=== PATIENT | female | born 2000 | race Caucasian/White ===

== ENCOUNTER 2020-03-16 16:35 | Emergency (ER) | payer MEDICAID, SELFPAY ==
[2020-03-16 16:59] VITALS: BP 112/57; PULSE 78; RESP 16; TEMP 36.8; O2SAT 100; BMI 22.3
--- NOTE | 2020-03-16 17:39 | ED.BACK ---
HPI - Back Pain/Injury General Chief Complaint: Back Pain/Injury Stated Complaint: BACK PAIN Time Seen by Provider: 03/16/20 17:39 History of Present Illness HPI Narrative: Patient complains of pain in the low back worse with movement which started yesterday without known injury, there is no change to bowel or bladder no burning with urination no numbness no weakness no radiation of pain no tingling no fever no chills Related Data Previous Rx's Medication Instructions Recorded cyclobenzaprine 5 mg PO TID PRN #14 tab 03/16/20 ibuprofen 600 mg PO Q6H PRN #20 tab 03/16/20 Allergies Allergy/AdvReac Type Severity Reaction Status Date / Time No Known Allergies Allergy Verified 03/16/20 17:03 [No Known Allergies*] Review of Systems Review of Systems: There is no headache no neck pain no chest pain no abdominal pain no numbness no weakness no paresthesias no radiation of pain no change to bowel or bladder no urine symptoms no burning or frequency Yes all other systems are reviewed and are negative PMFSH Past Medical History Source: nursing notes reviewed Medical History (Updated 03/17/20 @ 00:00 by Background Daemon) No known health problems Social History Social History Alcohol intake: never Smoked in Last 30 Days: No Use of substances other than those prescribed or required for medical reasons: No Advance Directives: No Advance Directives Information Provided: Yes Physical Exam Vital Signs: Vital Signs: Last Vital Signs Temp 98.3 F 03/16/20 16:59 Pulse 78 03/16/20 16:59 Resp 16 03/16/20 16:59 BP 112/57 L 03/16/20 16:59 Pulse Ox 100 03/16/20 16:59 Body Mass Index 22.3 Patient is A&O x3, no acute distress, cooperative the Normocephalic atraumatic Neck is supple and nontender The chest is clear to auscultation bilaterally, no tenderness to chest wall The abdomen is soft and nontender The back had upper and lower lumbar paraspinal tenderness bilaterally, pain was reproduced with movement there was no CVA tenderness no focal bony tenderness the skin was normal without redness or warmth or wound Extremities is full range of motion x4, gait is normal neuro there is no focal sensory or motor deficit, patient can walk on toes and walk on heels Course Course Course Narrative: Patient is treated for musculoskeletal back pain Discharge Plan Discharge Clinical Impression: Strain of lumbar region Patient Disposition: Home, Self-Care Additional Instructions: You can try Tylenol and Motrin together for pain relief as well as the muscle relaxer You can get Tylenol [id number] and can take 2 extra-strength Tylenol, a 1000 mg 3 times a day as needed Use muscle relaxer with caution as it will make you drowsy and you should not drive or go to work while taking Follow with primary care doctor as chiropractor and physical therapy are also very helpful if this does not get better in a couple of days Most people get better without much treatment Return to the ER any worse condition or any concerns Prescriptions: New ibuprofen 600 mg tablet 600 mg PO Q6H PRN (Reason: pain) Qty: 20 RF: 0 cyclobenzaprine 5 mg tablet 5 mg PO TID PRN (Reason: muscle spasm) Qty: 14 RF: 0 Stand Alone Forms: Work/School Release Interventions: ED Discharge Assessment Last Done: 03/16/20 18:14 Discharge Date/Time: 03/16/20 18:22
== END 2020-03-16 18:22 | disposition home or self-care (01) ==
PROVIDERS: Emergency Provider Emergency Medicine; PCP Pediatrics
DX: S39.012A Strain of muscle, fascia and tendon of lower back, initial encounter (principal); M54.6 Pain in thoracic spine; X58.XXXA Exposure to other specified factors, initial encounter; Y93.9 Activity, unspecified; Y92.9 Unspecified place or not applicable; Y99.9 Unspecified external cause status; Z79.899 Other long term (current) drug therapy
CPT/HCPCS: 99283; 99284

== ENCOUNTER 2020-04-13 11:59 | Outpatient (REF) | payer MEDICAID, SELFPAY | END 2020-04-13 12:00 | disposition home or self-care (01) | LOC: HO.LAB 11:59 | PROVIDERS: PCP Pediatrics; Visit Provider Internal Medicine | DX: Z20.828 Contact with and (suspected) exposure to other viral communicable diseases (principal) | CPT/HCPCS: C9803; U0003 ==

== ENCOUNTER 2020-06-21 13:18 | Emergency (ER) | payer MEDICAID, SELFPAY ==
--- NOTE | ~2020-06-21 | XR_ITS ---
EXAMINATION: XR LUMBAR SPINE 2-3 V, XR THORACIC SPINE 3V CLINICAL INFORMATION: Fall COMPARISON: None TECHNIQUE: AP, lateral, and swimmer's views of the thoracic spine. AP and lateral views of the lumbar spine with an additional coned down lateral spot view of the lumbosacral junction. FINDINGS: Mild convex right thoracic curvature. Normal sagittal alignment. Vertebral body and disc heights are maintained. 5 non-rib bearing lumbar type vertebral bodies are seen. The vertebral bodies and posterior elements are normal. The disc spaces are preserved and the vertebral alignment is normal. The paraspinal soft tissues are normal. XR/XR lumbar spine 2-3V IMPRESSION: Mild convex right thoracic scoliosis. This could be positional or due to muscle spasm. No acute osseous abnormality seen.
--- NOTE | ~2020-06-21 | XR_ITS ---
EXAMINATION: XR LUMBAR SPINE 2-3 V, XR THORACIC SPINE 3V CLINICAL INFORMATION: Fall COMPARISON: None TECHNIQUE: AP, lateral, and swimmer's views of the thoracic spine. AP and lateral views of the lumbar spine with an additional coned down lateral spot view of the lumbosacral junction. FINDINGS: Mild convex right thoracic curvature. Normal sagittal alignment. Vertebral body and disc heights are maintained. 5 non-rib bearing lumbar type vertebral bodies are seen. The vertebral bodies and posterior elements are normal. The disc spaces are preserved and the vertebral alignment is normal. The paraspinal soft tissues are normal. XR/XR thoracic spine 3V IMPRESSION: Mild convex right thoracic scoliosis. This could be positional or due to muscle spasm. No acute osseous abnormality seen.
[2020-06-21 13:27] VITALS: BP 92/63; PULSE 65; RESP 16; TEMP 37; O2SAT 98; BMI 22.3
[2020-06-21 13:39] VITALS: BP 107/72
--- NOTE | 2020-06-21 13:44 | ED.BACK ---
HPI - Back Pain/Injury General Chief Complaint: Back Pain/Injury <MARKY Gibson Last Filed: 06/21/20 19:53> Stated Complaint: fall- back pain work related <MARKY Gibson Last Filed: 06/21/20 19:53> Time Seen by Provider: 06/21/20 14:55 <MARKY Gibson - Last Filed: 06/21/20 19:53> Source: patient <MARKY Gibson - Last Filed: 06/21/20 19:53> Mode of arrival: ambulatory <MARKY Gibson - Last Filed: 06/21/20 19:53> Limitations: no limitations <MARKY Gibson Last Filed: 06/21/20 19:53> History of Present Illness HPI Narrative: Patient presents to ED for back pain after falling at work. Patient states she slipped on a box at work 2 days ago and fell onto her back and has had pain ever since. Patient denies any chest pain or shortness of breath. Denies hitting head, loss of consciousness, neck pain, abdominal pain, bloody urine, blood in stool, or vomiting blood. <MARKY Gibson Last Filed: 06/21/20 19:53> MD elicited complaint: back pain and back injury <MARKY Gibson Last Filed: 06/21/20 19:53> Related Data Home Medications: Previous Rx's Medication Instructions Recorded cyclobenzaprine 5 mg PO TID PRN #14 tab 03/16/20 ibuprofen 600 mg PO Q6H PRN #20 tab 03/16/20 cyclobenzaprine 10 mg PO TID PRN #18 tab 06/21/20 naproxen 500 mg PO BID PRN #20 tab 06/21/20 cephalexin 500 mg PO BID 10 Days #20 cap 07/08/20 doxycycline monohydrate 100 mg PO BID 10 Days #20 cap 07/08/20 ibuprofen 800 mg PO Q8H PRN #14 tab 07/08/20 oxycodone 5 mg PO BID PRN #10 tab 07/08/20 <MARKY Gibson Last Filed: 06/21/20 19:53> Allergies/Adverse Reactions: Allergies Allergy/AdvReac Type Severity Reaction Status Date / Time No Known Allergies Allergy Verified 07/08/20 13:07 [No Known Allergies*] <MARKY Gibson Last Filed: 06/21/20 19:53> Review of Systems Review of Systems: Yes all other systems are reviewed and are negative <MARKY Gibson Last Filed: 06/21/20 19:53> Constitutional: Constitutional: Reports as per HPI and Reports no additional constitutional complaints <MARKY Gibson Last Filed: 06/21/20 19:53> Eyes: Eyes: Reports as per HPI and Reports no additional eye complaints <MARKY Gibson Last Filed: 06/21/20 19:53> ENT: Reports system reviewed and no additional complaints, except as documented and Reports as per HPI <MARKY Gibson Last Filed: 06/21/20 19:53> Cardiovascular: Cardiovascular: Reports as per HPI and Reports no additional cardiovascular complaints <MARKY Gibson Last Filed: 06/21/20 19:53> Respiratory: Respiratory: Reports as per HPI and Reports no additional respiratory complaints <MARKY Gibson Last Filed: 06/21/20 19:53> Gastrointestinal: Gastrointestinal: Reports as per HPI and Reports no additional gastrointestinal complaints <MARKY Gibson Last Filed: 06/21/20 19:53> Genitourinary: Genitourinary: Reports no additional female genitourinary complaints and Reports as per HPI <MARKY Gibson Last Filed: 06/21/20 19:53> Musculoskeletal: Musculoskeletal: Reports no additional musculoskeletal complaints, Reports as per HPI and Reports back pain <MARKY Gibson Last Filed: 06/21/20 19:53> Neurologic: Reports as per HPI <MARKY Gibson Last Filed: 06/21/20 19:53> Psychiatric: Psychiatric: Reports no additional psychiatric complaints and Reports as per HPI <MARKY Gibson Last Filed: 06/21/20 19:53> PMF Past Medical History Medical History: Medical History (Updated 07/09/20 @ 00:01 by David Crenshaw) No known health problems <MARKY Gibson Last Filed: 06/21/20 19:53> Social History Social History: Social History Alcohol intake: never Advance Directives: No Advance Directives Information Provided: No <MARKY Gibson - Last Filed: 06/21/20 19:53> Physical Exam Vital Signs: Vital Signs: Last Vital Signs Temp 98.6 F 06/21/20 13:27 Pulse 65 06/21/20 13:27 Resp 16 06/21/20 13:27 BP 107/72 06/21/20 13:39 Pulse Ox 98 06/21/20 13:27 Body Mass Index 22.3 <MARKY Gibson - Last Filed: 06/21/20 19:53> Vital Signs: Last Vital Signs Temp 98.6 F 06/21/20 13:27 Pulse 65 06/21/20 13:27 Resp 16 06/21/20 13:27 BP 107/72 06/21/20 13:39 Pulse Ox 98 06/21/20 13:27 Body Mass Index 22.3 <Jacek Rodrigues MD - Last Filed: 07/13/20 06:58> Const: General: cooperative, healthy appearing, comfortable, no acute distress, well developed, alert, awake and Physically active <MARKY Gibson - Last Filed: 06/21/20 19:53> Orientation/consciousness: patient oriented x3 <MARKY Gibson - Last Filed: 06/21/20 19:53> HENMT: Head: Yes normal to inspection, Yes No palpable skull fracture present, Yes normocephalic, Yes atraumatic, No abrasion, No Acrocyanosis present, No Lange's sign, No contusion, No cranial bruits, No hematoma, No laceration, No occipital foramen tenderness, No palpable skull fracture, No raccoon eyes, No scalp lesion, No scalp tenderness, No Temporal artery tenderness present and No periorbital ecchymosis <MARKY Gibson - Last Filed: 06/21/20 19:53> Eyes: General: appearance normal, both eyes and all related structures <MARKY Gibson Last Filed: 06/21/20 19:53> Neck: Neck: Yes normal visual inspection, Yes full ROM, No no lymphadenopathy, No no meningeal signs, No trachea midline, No supple and No tender <MARKY Gibson Last Filed: 06/21/20 19:53> Chest: Chest palpation & inspection: normal inspection of the chest and normal palpation of entire chest wall <MARKY Gibson Last Filed: 06/21/20 19:53> Breast/axilla inspection: normal inspection of the breasts <MARKY Gibson Last Filed: 06/21/20 19:53> Resp: Effort & Inspection: normal respiratory effort and able to speak in complete sentences <MARKY Gibson Last Filed: 06/21/20 19:53> Auscultation: clear to auscultation bilaterally <MARKY Gibson Last Filed: 06/21/20 19:53> Cardio: Jugular venous distension: no JVD <MARKY Gibson Last Filed: 06/21/20 19:53> Heart sounds: S1 normal heart sound present and S2 normal heart sound present <MARKY Gibson Last Filed: 06/21/20 19:53> GI: Inspection: Yes normal to inspection and No abdominal wall ecchymosis <MARKY Gibson Last Filed: 06/21/20 19:53> Palpation (GI): Soft to palpation, not firm, nontender, no guarding and not rigid <MARKY Gibson Last Filed: 06/21/20 19:53> : General: No CVA tenderness and Yes no CVA tenderness <MARKY Gibson Last Filed: 06/21/20 19:53> Back/Spine/Pelvis: Back: no CVA tenderness, No CVA tenderness and back tenderness (Thoracic and lumbar) <MARKY Gibson Last Filed: 06/21/20 19:53> Skin: General skin exam: no rashes or lesions noted and elasticity normal <MARKY Gibson Last Filed: 06/21/20 19:53> Neuro: General: patient oriented x3, gait normal, No no meningeal signs and CN's II-XI intact bilaterally <MARKY Gibson Last Filed: 06/21/20 19:53> Cranial nerves: Yes CN's II-XII intact bilaterally <MARKY Gibson Last Filed: 06/21/20 19:53> Extrem: General: Yes normal to inspection and Yes full ROM <MARKY Gibson - Last Filed: 06/21/20 19:53> Psych: Appearance: grossly normal and well kempt <MARKY Gibson - Last Filed: 06/21/20 19:53> Course Course Course Narrative: History physical exam and came muscular back pain will send patient for spine x-ray to rule out any fracture. Patient given Motrin and Flexeril. <MARKY Gibson - Last Filed: 06/21/20 19:53> I have reviewed the chart <Jacek Rodrigues MD - Last Filed: 07/13/20 06:58> Reevaluation(s) Reevaluation #1: X-rays came back negative for for fracture. Patient states pain resolved after receiving meds. <MARKY Gibson - Last Filed: 06/21/20 19:53> Time: 15:00 <MARKY Gibson - Last Filed: 06/21/20 19:53> MDM - Back Pain/Injury MDM Narrative Medical decision making narrative: Back pain <MARKY Gibson - Last Filed: 06/21/20 19:53> Discharge Plan Discharge Clinical Impression: Strain of lumbar region <MARKY Gibson - Last Filed: 06/21/20 19:53> Patient Disposition: Home, Self-Care <MARKY Gibson - Last Filed: 06/21/20 19:53> Instructions: Low Back Strain (ED), Back Pain (ED) <MARKY Gibson - Last Filed: 06/21/20 19:53> Additional Instructions: Return to the ED immediately for any headache, dizziness, chest pain, shortness of breath, urinary/bowel incontinence, weakness in lower extremities, severe back pain, abdominal pain, any other concerning symptoms. Please follow-up with PCP <MARKY Gibson - Last Filed: 06/21/20 19:53> Prescriptions: New naproxen 500 mg tablet 500 mg PO BID PRN (Reason: pain) Qty: 20 RF: 0 cyclobenzaprine 10 mg tablet 10 mg PO TID PRN (Reason: pain) Qty: 18 RF: 0 No Action ibuprofen 600 mg tablet 600 mg PO Q6H PRN (Reason: pain) Qty: 20 RF: 0 cyclobenzaprine 5 mg tablet 5 mg PO TID PRN (Reason: muscle spasm) Qty: 14 RF: 0 ibuprofen 800 mg tablet 800 mg PO Q8H PRN (Reason: pain) Qty: 14 RF: 0 doxycycline monohydrate 100 mg capsule 100 mg PO BID 10 Days Qty: 20 RF: 0 cephalexin 500 mg capsule 500 mg PO BID 10 Days Qty: 20 RF: 0 oxycodone 5 mg tablet 5 mg PO BID PRN (Reason: pain) Qty: 10 RF: 0 <MARKY Gibson - Last Filed: 06/21/20 19:53> Stand Alone Forms: Work/School Release <MARKY Gibson - Last Filed: 06/21/20 19:53> Interventions: ED Discharge Assessment Last Done: 06/21/20 15:11 <MARKY Gibson - Last Filed: 06/21/20 19:53> Discharge Date/Time: 06/21/20 15:11 <MARKY Gibson - Last Filed: 06/21/20 19:53> Print Language: Tristanian <MARKY Gibson - Last Filed: 06/21/20 19:53>
[2020-06-21] MEDS: Ibuprofen 800 MG TABLET PO (14:22)
[2020-06-21] MEDS: Cyclobenzaprine HCl 5 MG TABLET PO (14:22)
== END 2020-06-21 15:11 | disposition home or self-care (01) ==
PROVIDERS: Emergency Provider Emergency Medicine; PCP Pediatrics
DX: S39.012A Strain of muscle, fascia and tendon of lower back, initial encounter (principal); W17.89XA Other fall from one level to another, initial encounter; M54.6 Pain in thoracic spine; Y93.9 Activity, unspecified; Y92.9 Unspecified place or not applicable; Y99.0 Civilian activity done for income or pay; Z79.899 Other long term (current) drug therapy
CPT/HCPCS: 72072; 72100; 99283; 99284

== ENCOUNTER 2020-07-08 11:10 | Emergency (ER) | payer MEDICAID, SELFPAY ==
--- NOTE | ~2020-07-08 | US_ITS ---
EXAMINATION: US DIAGNOSTIC ULTRASOUND BREAST, RIGHT CLINICAL INFORMATION: Redness and swelling right breast 9-12 o'clock aspect. Question abscess. COMPARISON: None. TECHNIQUE: Ultrasound of the breast is performed with real-time ahuja scale imaging and color Doppler. FINDINGS: Images are provided. I did not personally scan. In region of redness 11:00 position there is a 9 x 5 x 10 mm focal heterogeneous echotexture region with prominent vascularity. No definite abscess collection is appreciated. There is some edematous change in the adjacent tissues. There are prominent ducts present. US/US breast RT limited IMPRESSION: Interpretation of images provided without prior studies scanning has the appearance of some inflammatory change within tissues with a small 1 cm maximum dimension hypervascular region with no drainable abscess identified. ASSESSMENT: BI-RADS 3: Probably Benign RECOMMENDATION: Clinical management If symptoms do not improve recommend ultrasound in 6 weeks.
[2020-07-08 12:19] VITALS: BP 113/76; PULSE 73; RESP 16; TEMP 36.6; O2SAT 100; BMI 25.7
[2020-07-08] MEDS: Ibuprofen 800 MG TABLET PO (14:26)
[2020-07-08] MEDS: oxyCODONE HCl Immed Release 5 MG TABLET PO (14:26)
--- NOTE | 2020-07-08 15:11 | ED.SKABFB ---
HPI - Skin/Abscess/Foreign Bdy General Chief complaint: Skin/Abscess/Foreign Body Stated complaint: lump rt breast Time Seen by Provider: 07/08/20 13:40 Source: patient Mode of arrival: ambulatory Limitations: no limitations History of Present Illness HPI narrative: 20-year-old female with no significant past medical history presenting to the ED with complaints of a lump with associated redness on her right breast for the past 2 days worse today. Denies any other symptoms complaints or concerns at this time. Denies history of breast cancer. MD complaint: abscess/boil and discoloration Onset (ago): day(s) (Two days worse today) Tetanus up to date: unsure Location: chest (Right breast) Severity: moderate Quality: aching and constant Pain Consistency: constant Relieving factors: none Exacerbating factors: palpation Context: none Associated symptoms: denies other symptoms Treatments prior to arrival: none Related Data Previous Rx's Medication Instructions Recorded cyclobenzaprine 5 mg PO TID PRN #14 tab 03/16/20 ibuprofen 600 mg PO Q6H PRN #20 tab 03/16/20 cyclobenzaprine 10 mg PO TID PRN #18 tab 06/21/20 naproxen 500 mg PO BID PRN #20 tab 06/21/20 cephalexin 500 mg PO BID 10 Days #20 cap 07/08/20 doxycycline monohydrate 100 mg PO BID 10 Days #20 cap 07/08/20 ibuprofen 800 mg PO Q8H PRN #14 tab 07/08/20 oxycodone 5 mg PO BID PRN #10 tab 07/08/20 Allergies Allergy/AdvReac Type Severity Reaction Status Date / Time No Known Allergies Allergy Verified 07/08/20 13:07 [No Known Allergies*] Review of Systems Review of Systems: Constitutional : No Weight loss, No Fever, No Chills, No Night Sweats, No Fatigue, No Malaise Cardiovascular : No Chest Pain, No SOB Respiratory : No Cough, No Sputum, No Wheezing Breasts/Integumentary: + erythema/breast swelling, No change in breast shape, no change in hair, no lesions, no nipple discharge, no wounds, no bleeding lesions, no acne Gastrointestinal : No Nausea, No Vomiting, No Diarrhea, No Constipation, No abdominal Pain Genitourinary : no irregular bleeding, No Dysuria, No Urinary Frequency, No Hematuria, No Urinary Incontinence, No Urgency, No Flank Pain Musculoskeletal : No joint pain, No Myalgias, No Joint Swelling Skin : No Skin Lesions, No rash Neuro : No Weakness, No Numbness, No Paresthesias, No Loss of Consciousness, No Dizziness, No Headache Heme/Lymph: No Bruising, No Bleeding,No Lymphadenopathy Yes all other systems are reviewed and are negative COUNT INCLUDES THE [facility] Past Medical History Attestation statement: The following information was validated with the patient. Medical History (Updated 07/08/20 @ 17:29 by MARKY Armendariz) No known health problems Social History Social History Alcohol intake: never Advance Directives: No Advance Directives Information Provided: No Physical Exam Vital Signs: Vital Signs: Last Vital Signs Temp 98.7 F 07/08/20 15:42 Pulse 78 07/08/20 15:42 Resp 16 07/08/20 15:42 BP 120/77 07/08/20 15:42 Pulse Ox 100 07/08/20 15:42 Body Mass Index 25.7 vital signs have been reviewed as normal and appeared to be correct. Blood pressure normal. Heart rate normal. Respiration rate normal. Temperature normal. Oxygen saturation normal. Appearance: Alert. Oriented X3. No acute distress. Head: Normal external exam. Normocephalic. Atraumatic. Eyes: PERRLA. EOMI. Conjunctiva and sclera normal. Eyelids normal. ENT: EAC normal. TM's Normal. Pharynx normal. Uvula midline. Moist mucous membranes. Neck: Normal inspection. Neck supple. FROM. No adenopathy. Thyroid Normal. No meningeal signs. No neck mass noted. CVS: Normal heart rate and rhythm. Heart sound normal. No murmurs noted. Pulses normal throughout. Respiratory: No respiratory distress. Painless inspiration. Breath sounds normal. No wheezes/rales/rhonchi noted. Chest nontender. No accessory muscle usage noted or decreased air movement noted. Breast: To right breast patient has moderate erythema to the 9-12:00 o'clock aspect of the breast with fluctuance versus induration questioning abscess. Normal inspection of axillary area. No nipple discharge noted. No axillary lymphadenopathy noted. Back: Full range of motion noted. Skin: Skin warm and dry. Normal skin color. Normal skin turgor. No rashes/lesions/lacerations noted. Extremities: Extremities exhibit normal range of motion. Extremities nontender. Neuro: Oriented X 3. No motor deficit. No sensory deficit. Reflexes normal. Course Course Course Narrative: 13:45pm - 20-year-old female with no significant past medical history presenting to the ED with complaints of a lump with associated redness on her right breast for the past 2 days worse today. - on exam patient has moderate erythema with induration versus fluctuance to right breast at the 9-12 o'clock area. No nipple discharge. No axillary lymphadenopathy noted. The left breast is within normal limits. - concern for abscess versus cellulitis versus cancer - Plan: Ultrasound of right breast. Provide 100 mg of Motrin and 5 mg of outside: Then re-evaluate. Reevaluation(s) Reevaluation #1: Ultrasound of right breast limited revealed region of redness 11 position there is a 9 x 5 x 10 mm focal heterogeneous echotexture region with prominent vascularity although no definite abscess collection is appreciated. Therefore they are recommending repeat ultrasound in 6 weeks after treatment. I printed this out and gave a copy to the patient. Will DC home with doxy and Keflex and instructions to have a repeat ultrasound by her primary care provider in 6 weeks if symptoms are not improving a possible mammogram. Patient understands agrees with this plan. Time: 17:27 MDM - Skin/Abscess/Foreign Bdy Medical Records Attestation: I reviewed the patient's medical records. Imaging Data Right breast ultrasound limited: Attestation: I personally reviewed and interpreted this imaging study as follows: Radiologist's impression: FINDINGS: Images are provided. I did not personally scan. In region of redness 11:00 position there is a 9 x 5 x 10 mm focal heterogeneous echotexture region with prominent vascularity. No definite abscess collection is appreciated. There is some edematous change in the adjacent tissues. There are prominent ducts present. US/US breast RT limited IMPRESSION: Interpretation of images provided without prior studies scanning has the appearance of some inflammatory change within tissues with a small 1 cm maximum dimension hypervascular region with no drainable abscess identified. ASSESSMENT: BI-RADS 3: Probably Benign RECOMMENDATION: Clinical management If symptoms do not improve recommend ultrasound in 6 weeks. Discharge Plan Discharge Clinical Impression: Cellulitis of female breast Patient Disposition: Home, Self-Care Instructions: Cellulitis (ED) Additional Instructions: You are being treated for a skin infection although you do have a lump under the breast we cannot rule out any type of breast cancer therefore after your treated with these antibiotics he should follow up with her primary care provider for repeat ultrasound in 6 months and a mammogram possibly. Return if any new or worsening symptoms. Prescriptions: New ibuprofen 800 mg tablet 800 mg PO Q8H PRN (Reason: pain) Qty: 14 RF: 0 doxycycline monohydrate 100 mg capsule 100 mg PO BID 10 Days Qty: 20 RF: 0 cephalexin 500 mg capsule 500 mg PO BID 10 Days Qty: 20 RF: 0 oxycodone 5 mg tablet 5 mg PO BID PRN (Reason: pain) Qty: 10 RF: 0 No Action naproxen 500 mg tablet 500 mg PO BID PRN (Reason: pain) Qty: 20 RF: 0 cyclobenzaprine 10 mg tablet 10 mg PO TID PRN (Reason: pain) Qty: 18 RF: 0 ibuprofen 600 mg tablet 600 mg PO Q6H PRN (Reason: pain) Qty: 20 RF: 0 cyclobenzaprine 5 mg tablet 5 mg PO TID PRN (Reason: muscle spasm) Qty: 14 RF: 0 Referrals: Lorne Vazquez MD [Primary Care Provider] - 2 days Stand Alone Forms: Work/School Release Print Language: Burkinan
[2020-07-08 15:42] VITALS: BP 120/77; PULSE 78; RESP 16; TEMP 37.1; O2SAT 100
== END 2020-07-08 17:48 | disposition home or self-care (01) ==
PROVIDERS: Emergency Provider Emergency Medicine Emergency Medical Services; PCP Pediatrics
DX: N61.0 Mastitis without abscess (principal); Z79.899 Other long term (current) drug therapy
CPT/HCPCS: 76642; 99284

== ENCOUNTER 2020-08-16 14:51 | Outpatient (REF) | payer MEDICAID, SELFPAY ==
[2020-08-16 15:26] LABS: COVID-19 Test Positive (Negative)
== END 2020-08-16 14:52 | disposition home or self-care (01) ==
LOC: HO.LAB 14:51
PROVIDERS: Visit Provider Internal Medicine
DX: Z20.822 Contact with and (suspected) exposure to COVID-19 (principal)
CPT/HCPCS: 36415; 87635; C9803

== ENCOUNTER 2020-08-24 15:25 | Outpatient (REF) | payer MEDICAID, SELFPAY ==
[2020-08-24 15:45] LABS: COVID-19 Test Negative (Negative)
== END 2020-08-24 15:26 | disposition home or self-care (01) ==
LOC: HO.LAB 15:25
PROVIDERS: Visit Provider Internal Medicine
DX: Z20.822 Contact with and (suspected) exposure to COVID-19 (principal)
CPT/HCPCS: 36415; 87635; C9803

== ENCOUNTER 2021-12-01 17:04 | Emergency (ER) | payer MEDICAID, SELFPAY ==
--- NOTE | ~2021-12-01 | CT_ITS ---
EXAMINATION: CT ABDOMEN AND PELVIS WITHOUT CONTRAST CLINICAL INFORMATION: Left flank pain. COMPARISON: None TECHNIQUE: Multidetector volumetric imaging was performed from the superior aspect of the liver through the pubic symphysis. Sagittal and coronal reformatted images were obtained on the technologist's workstation. This CT examination was performed using dose optimization techniques as appropriate, variously including the following: *Automated exposure control *Adjustment of mA and/or kV according to patient size (this includes techniques or standardized protocols for targeted exams where dose is matched to indication/reason for exam; i.e. extremities or head) *Use of iterative reconstruction technique DLP: 606 mGy-cm FINDINGS: LUNG BASES: The visualized lung bases are unremarkable. LIVER, GALLBLADDER, AND BILIARY TREE: The liver is normal in size, shape, and attenuation. No focal hepatic lesion or biliary ductal dilatation is present. The gallbladder is unremarkable with no evidence of radiopaque gallstones, gallbladder wall thickening, or obvious pericholecystic inflammatory changes. PANCREAS: Unremarkable. SPLEEN: Unremarkable. ADRENAL GLANDS: Unremarkable. KIDNEYS AND URETERS: The kidneys are normal in size, shape, and attenuation. No hydronephrosis or hydroureter. There are bilateral punctate nonobstructive calculi numbering used 2 within the left kidney and one within the right. No perinephric stranding. BLADDER: Unremarkable. GASTROINTESTINAL TRACT: The small and large bowel are unremarkable. The appendix is somewhat prominent terms of caliber, however there is no periappendiceal inflammatory change to suggest appendicitis.. ABDOMINAL WALL: No significant hernia is appreciated. LYMPH NODES: Normal. VASCULAR: Unremarkable. PELVIC VISCERA: Uterus and ovaries unremarkable. OSSEOUS STRUCTURES: Unremarkable. CT/CT abdomen pelvis wo con IMPRESSION: No potential etiology for the patient's left flank pain is identified. Bilateral nonobstructive intrarenal calculi
[2021-12-01 18:32] VITALS: BP 127/62; PULSE 66; RESP 16; TEMP 36.4; O2SAT 99; BMI 27.4
[2021-12-01 18:57] LABS: Basophils Percent Auto 0.4 % (0-2); Eosinophils Absolute Auto 0.1 X10*3/uL (0.0-0.4); Eosinophils Percent Auto 1.4 % (0-4); Hematocrit 36.2 % (37.0-47.0); Hemoglobin 11.6 g/dl (12.0-16.0); Imm Gran Abs Auto 0.01 X10*3/uL (0.00-0.03); Imm Gran Pct Auto 0.1 % (0.0-0.4); Lymphocytes Percent Auto 34.6 % (20-40); MANUAL DIFF FLAG NO; Mean Corpuscular Hemoglobin 25.2 pg (27.0-33.0); Mean Corpuscular Volume 78.5 fL (80.0-98.0); Mean Platelet Volume 8.2 fL (9.4-12.3); Monocytes Absolute Auto 0.7 X10*3/uL (0.1-1.2); Monocytes Percent Auto 8.2 % (2-11); Neutrophils Absolute Auto 4.7 x10*3/uL (2.0-8.3); Neutrophils Percent Auto 55.3 % (45-73); Platelet Count 393 X10*3/uL (160-400); Red Blood Count 4.61 X10*6/uL (4.20-5.50); Red Cell Distribution Width 14.2 % (11.0-16.0); White Blood Count 8.5 X10*3/uL (4.8-10.8)
[2021-12-01 19:00] LABS: Appearance Urine HAZY; Color Urine YELLOW; Glucose Urine UA NEG (NEG); Leukocyte Esterase Urine NEG (NEG); Nitrite Urine NEG (NEG); PH 6.5 (5.0-8.0); Specific Gravity - Urine 1.025 (1.005-1.025); UACC Culture Trigger NO; Urine Blood 3+ (NEG); Urine Ketones NEG (NEG); Urine Protein 1+ MG/DL (NEG-TRACE)
[2021-12-01 19:01] LABS: UPreg QC Valid YES; Urine Pregnancy NEGATIVE (NEGATIVE)
[2021-12-01 19:05] LABS: Bacteria Urine TRACE /LPF; Mucus Urine 3+ /LPF; Squamous Epithelial Cell Urine 2+ /LPF; WBC Urine 0 /HPF (0-4)
[2021-12-01 19:18] LABS: Alanine Aminotransferase 19 U/L (0-31); Albumin Level 4.2 g/dL (3.5-5.0); Alkaline Phosphatase 100 U/L (39-117); Anion Gap 13 (12-20); Aspartate Amino Transferase 16 U/L (5-31); Bilirubin Total 0.3 mg/dL (0.0-1.0); Blood Urea Nitrogen 9 mg/dL (9-16); Calcium 8.9 mg/dL (8.4-10.2); Carbon Dioxide 26 mmol/L (22-29); Chloride 107 mmol/L (96-108); Estimated Glomerular Filt Rate > 60; Glucose Random 68 mg/dL (60-115); Lipase 23 U/L (8-78); Potassium 3.6 mmol/L (3.3-5.1); Sodium 142 mmol/L (135-145); Total Protein 7.1 g/dL (6.5-8.0)
[2021-12-01 20:48] VITALS: BP 127/66; PULSE 80; RESP 16; TEMP 36.4; O2SAT 100
--- NOTE | 2021-12-01 21:25 | ED.ABDPAIN ---
HPI - Abdominal Pain General Chief Complaint: Abdominal Pain Stated Complaint: vomiting abd pain Time Seen by Provider: 12/01/21 21:24 Source: patient Mode of arrival: ambulatory Limitations: no limitations History of Present Illness HPI narrative: 21-year-old female presents with left lower quadrant abdominal pain and flank pain for approximately 1 day. She has had an episode of nausea with vomiting. States the pain is better with rest and Motrin, describes as a sharp intermittent stabbing pain. She does not report fevers or chills, denies abdominal distention and dysuria. MD elicited complaint: abdominal pain and flank pain Pertinent past history: none Onset (ago): day(s) (1) Pain Consistency: constant Location: LLQ and L flank Severity: moderate Pain scale (0-10): 5 Quality: aching and sharp Radiation: none Migration to: no migration Exacerbating factors: movement Relieving factors: medication Associated symptoms: denies other symptoms Related Data Date of Last Menstrual Period: 11/30/21 Patient : No Previous Rx's Medication Instructions Recorded cyclobenzaprine 5 mg tablet 5 mg PO TID PRN muscle spasm #14 03/16/20 tabs ibuprofen 600 mg tablet 600 mg PO Q6H PRN pain #20 tabs 03/16/20 cyclobenzaprine 10 mg tablet 10 mg PO TID PRN pain #18 tabs 06/21/20 naproxen 500 mg tablet 500 mg PO BID PRN pain #20 tabs 06/21/20 cephalexin 500 mg capsule 500 mg PO BID 10 days #20 caps 07/08/20 doxycycline monohydrate 100 mg 100 mg PO BID 10 days #20 caps 07/08/20 capsule ibuprofen 800 mg tablet 800 mg PO Q8H PRN pain #14 tabs 07/08/20 oxycodone 5 mg tablet 5 mg PO BID PRN pain #10 tabs 07/08/20 ibuprofen 600 mg tablet 600 mg PO Q6H PRN pain #60 tabs 12/02/21 tamsulosin 0.4 mg capsule (Flomax) 0.4 mg PO DAILY #14 caps 12/02/21 Allergies Allergy/AdvReac Type Severity Reaction Status Date / Time No Known Allergies Allergy Verified 07/08/20 13:07 [No Known Allergies*] Review of Systems Review of Systems Constitutional: No Fever, No Chills ENT/Mouth: No sore throat Eyes: No Eye Pain, No Swelling, No Redness Cardiovascular: No Chest Pain, No SOB Respiratory: No Cough, No Sputum, No Wheezing Gastrointestinal: positive Nausea, positive Vomiting, No Diarrhea, positive abdominal pain Genitourinary: No Dysuria, no urinary frequency, positive Hematuria, positive Flank Pain, no hesitancy Musculoskeletal: No joint pain, No Myalgias Skin: No Skin Lesions, No rash Neuro: No Weakness, No Numbness, No Headache Psych: No Anxiety/Panic, No Depression Heme/Lymph: No Bruising, No Lymphadenopathy Endocrine: No Polyuria, No Polydipsia Yes all other systems are reviewed and are negative FOR[facility]LY [facility] Past Medical History Attestation statement: The following information was validated with the patient. Source: old records reviewed Medical History No known health problems Date of Last Menstrual Period: 11/30/21 Social History Social History Alcohol intake: never Advance Directives: No Advance Directives Information Provided: No Patient : No Physical Exam ED Vital Signs: Vital Signs - 24 hr 12/01/21 18:32 12/01/21 20:48 Temperature 97.5 F 97.6 F Pulse Rate 66 80 Respiratory Rate 16 16 Blood Pressure 127/62 127/66 Pulse Oximetry 99 100 Oxygen Delivery Method Room Air Room Air BMI result Body Mass Index 27.4 Appearance: Alert. Oriented X3. No acute distress. Eyes: Pupils equal, round and reactive to light. ENT: Pharynx normal. Neck: Normal inspection. Neck supple. CVS: Normal heart rate and rhythm. Pulses normal. Respiratory: No respiratory distress. Breath sounds normal. Abdomen: Soft and left lower quadrant tenderness to palpation, left-sided CVA tenderness. Skin: Skin warm and dry. Normal skin color. Normal skin turgor. Extremities: No lower extremity edema. Moves all extremities against resistance. Neuro: No motor deficit. No sensory deficit. Cranial nerves 2-12 intact. Course Course Course Narrative: 21-year-old female presents with left lower quadrant pain and left flank pain, labs drawn while patient was in the emergency department waiting room, has rani hematuria. No prior history of kidney stones and patient is not menstruating at this time. States the pain was better with NSAIDs. Will order CT scan of abdomen pelvis. 00:43 CT scan indicating 2 nonobstructing left-sided stone in the left kidney and 1 stone in the right kidney. No perinephric stranding noted. Will treat with Flomax and ibuprofen. Will have patient follow-up with urology as needed. Patient verbalized understanding of and agrees to plan of care discharge home. Verbalized understanding of signs and symptoms indicating need for emergent intervention. MDM - Abdominal Pain Differential Diagnosis Differential diagnosis: Likely abdominal pain, calculus of kidney and diverticulitis Differential diagnosis narrative:: Pyelonephritis, nephritis Medical Records Attestation: I reviewed the patient's medical records. Lab Data Attestation: I reviewed the patient's lab results. Result diagrams: 12/01/21 18:49 12/01/21 18:49 Labs: Lab Results 12/01/21 12/01/21 12/01/21 Range/Units 18:49 18:49 18:49 WBC 8.5 (4.8-10.8) X10*3/uL RBC 4.61 (4.20-5.50) X10*6/uL Hgb 11.6 L (12.0-16.0) g/dl Hct 36.2 L (37.0-47.0) % MCV 78.5 L (80.0-98.0) fL MCH 25.2 L (27.0-33.0) pg MCHC 32.0 (31.0-35.0) g/dl RDW 14.2 (11.0-16.0) % Plt Count 393 (160-400) X10*3/uL MPV 8.2 L (9.4-12.3) fL Immature Gran % (Auto) 0.1 (0.0-0.4) % Neut % (Auto) 55.3 (45-73) % Lymph % (Auto) 34.6 (20-40) % [place] % (Auto) 8.2 (2-11) % Eos % (Auto) 1.4 (0-4) % Baso % (Auto) 0.4 (0-2) % Lymph # (Auto) 3.0 (1.2-4.9) X10*3/uL [place] # (Auto) 0.7 (0.1-1.2) X10*3/uL Eos # (Auto) 0.1 (0.0-0.4) X10*3/uL Baso # (Auto) 0.0 (0.0-0.2) X10*3/uL Abs Immat Gran (auto) 0.01 (0.00-0.03) X10*3/uL Absolute Neuts (auto) 4.7 (2.0-8.3) x10*3/uL Absolute Nucleated RBC 0.000 (0.0-0.012) X10*3/uL Nucleated RBC % (auto) 0.0 (0.0-0.2) /100WBC Sodium 142 (135-145) mmol/L Potassium 3.6 (3.3-5.1) mmol/L Chloride 107 (96-108) mmol/L Carbon Dioxide 26 (22-29) mmol/L Anion Gap 13 (12-20) BUN 9 (9-16) mg/dL Creatinine 0.77 (0.5-1.4) mg/dL Estim Creat Clear Calc 117.0 Estimated GFR > 60 Random Glucose 68 (60-115) mg/dL Calcium 8.9 (8.4-10.2) mg/dL Total Bilirubin 0.3 (0.0-1.0) mg/dL AST 16 (5-31) U/L ALT 19 (0-31) U/L Alkaline Phosphatase 100 (39-117) U/L Total Protein 7.1 (6.5-8.0) g/dL Albumin 4.2 (3.5-5.0) g/dL Lipase 23 (8-78) U/L Urine Color YELLOW Urine Appearance HAZY Urine pH 6.5 (5.0-8.0) Ur Specific Sabina 1.025 (1.005-1.025) Urine Protein 1+ H (NEG-TRACE) MG/DL Urine Glucose (UA) NEG (NEG) MG/DL Urine Ketones NEG (NEG) MG/DL Urine Blood 3+ H (NEG) Urine Nitrite NEG (NEG) Ur Leukocyte Esterase NEG (NEG) Urine RBC 10-14 H (0) /HPF Urine WBC 0 (0-4) /HPF Ur Squamous Epith Cells 2+ /LPF Urine Bacteria TRACE /LPF Urine Mucus 3+ /LPF Urine Test (NEGATIVE) 08/04/22 Range/Units 18:49 WBC (4.8-10.8) X10*3/uL RBC (4.20-5.50) X10*6/uL Hgb (12.0-16.0) g/dl Hct (37.0-47.0) % MCV (80.0-98.0) fL MCH (27.0-33.0) pg MCHC (31.0-35.0) g/dl RDW (11.0-16.0) % Plt Count (160-400) X10*3/uL MPV (9.4-12.3) fL Immature Gran % (Auto) (0.0-0.4) % Neut % (Auto) (45-73) % Lymph % (Auto) (20-40) % [place] % (Auto) (2-11) % Eos % (Auto) (0-4) % Baso % (Auto) (0-2) % Lymph # (Auto) (1.2-4.9) X10*3/uL [place] # (Auto) (0.1-1.2) X10*3/uL Eos # (Auto) (0.0-0.4) X10*3/uL Baso # (Auto) (0.0-0.2) X10*3/uL Abs Immat Gran (auto) (0.00-0.03) X10*3/uL Absolute Neuts (auto) (2.0-8.3) x10*3/uL Absolute Nucleated RBC (0.0-0.012) X10*3/uL Nucleated RBC % (auto) (0.0-0.2) /100WBC Sodium (135-145) mmol/L Potassium (3.3-5.1) mmol/L Chloride (96-108) mmol/L Carbon Dioxide (22-29) mmol/L Anion Gap (12-20) BUN (9-16) mg/dL Creatinine (0.5-1.4) mg/dL Estim Creat Clear Calc Estimated GFR Random Glucose (60-115) mg/dL Calcium (8.4-10.2) mg/dL Total Bilirubin (0.0-1.0) mg/dL AST (5-31) U/L ALT (0-31) U/L Alkaline Phosphatase (39-117) U/L Total Protein (6.5-8.0) g/dL Albumin (3.5-5.0) g/dL Lipase (8-78) U/L Urine Color Urine Appearance Urine pH (5.0-8.0) Ur Specific Sabina (1.005-1.025) Urine Protein (NEG-TRACE) MG/DL Urine Glucose (UA) (NEG) MG/DL Urine Ketones (NEG) MG/DL Urine Blood (NEG) Urine Nitrite (NEG) Ur Leukocyte Esterase (NEG) Urine RBC (0) /HPF Urine WBC (0-4) /HPF Ur Squamous Epith Cells /LPF Urine Bacteria /LPF Urine Mucus /LPF Urine Test NEGATIVE (NEGATIVE) Imaging Data CT abdomen pelvis: Attestation: I personally reviewed and interpreted this imaging study as follows: Radiologist's impression: EXAMINATION: CT ABDOMEN AND PELVIS WITHOUT CONTRAST? CLINICAL INFORMATION: Left flank pain.? COMPARISON: None? TECHNIQUE: Multidetector volumetric imaging was performed from the superior aspect of the liver through the pubic symphysis. Sagittal and coronal reformatted images were obtained on the technologist's workstation.? This CT examination was performed using dose optimization techniques as appropriate, variously including the following: *Automated exposure control *Adjustment of mA and/or kV according to patient size (this includes techniques or standardized protocols for targeted exams where dose is matched to indication/reason for exam; i.e. extremities or head) *Use of iterative reconstruction technique DLP: 606 mGy-cm FINDINGS: LUNG BASES: The visualized lung bases are unremarkable.? LIVER, GALLBLADDER, AND BILIARY TREE: The liver is normal in size, shape, and attenuation. No focal hepatic lesion or biliary ductal dilatation is present. The gallbladder is unremarkable with no evidence of radiopaque gallstones, gallbladder wall thickening, or obvious pericholecystic inflammatory changes.? PANCREAS: Unremarkable.? SPLEEN: Unremarkable.? ADRENAL GLANDS: Unremarkable.? KIDNEYS AND URETERS: The kidneys are normal in size, shape, and attenuation. No hydronephrosis or hydroureter. There are bilateral punctate nonobstructive calculi numbering used 2 within the left kidney and one within the right. No perinephric stranding. ? BLADDER: Unremarkable.? GASTROINTESTINAL TRACT: The small and large bowel are unremarkable. The appendix is somewhat prominent terms of caliber, however there is no periappendiceal inflammatory change to suggest appendicitis..? ABDOMINAL WALL: No significant hernia is appreciated.? LYMPH NODES: Normal. VASCULAR: Unremarkable. PELVIC VISCERA: Uterus and ovaries unremarkable.? OSSEOUS STRUCTURES: Unremarkable.? CT/CT abdomen pelvis wo con IMPRESSION: No potential etiology for the patient's left flank pain is identified. Bilateral nonobstructive intrarenal calculi? Discharge Plan Discharge Clinical Impression: Calculus of kidney Patient Disposition: Home, Self-Care Instructions: Kidney Stones (ED) Additional Instructions: You were evaluated for left-sided flank pain. CT scan of abdomen and pelvis indicates bilateral kidney stones. You have 2 kidney stones in the left, and 1 kidney stone in the right. Please take Flomax daily for the next 14 days. Drink plenty of fluids. Use Motrin 600 mg every 6 hours as needed for pain management. Follow-up with Urology and/or primary care physician as needed. I referred you to Dr. Khanna. Please call and request an appointment if needed. If you are unable to urinate and you feel that your bladder is full, and have not urinated in several hours please return to the emergency department immediately. This means that there is an obstruction in the urethra. Please return if you are passing large blood clots through the urinary meatus. Thank you for choosing this emergency department for evaluation. Please follow-up with primary care physician as needed. Return to the emergency department for any new, concerning, or worsening symptoms. Prescriptions: New tamsulosin [Flomax] 0.4 mg capsule 0.4 mg PO DAILY Qty: 14 0RF Rx Instructions: Bilateral kidney stones ibuprofen 600 mg tablet 600 mg PO Q6H PRN (Reason: pain) Qty: 60 0RF No Action naproxen 500 mg tablet 500 mg PO BID PRN (Reason: pain) Qty: 20 0RF cyclobenzaprine 10 mg tablet 10 mg PO TID PRN (Reason: pain) Qty: 18 0RF Rx Instructions: side effect is drowsiness. Do not take at work or while driving. ibuprofen 600 mg tablet 600 mg PO Q6H PRN (Reason: pain) Qty: 20 0RF cyclobenzaprine 5 mg tablet 5 mg PO TID PRN (Reason: muscle spasm) Qty: 14 0RF ibuprofen 800 mg tablet 800 mg PO Q8H PRN (Reason: pain) Qty: 14 0RF doxycycline monohydrate 100 mg capsule 100 mg PO BID 10 Days Qty: 20 0RF cephalexin 500 mg capsule 500 mg PO BID 10 Days Qty: 20 0RF oxycodone 5 mg tablet 5 mg PO BID PRN (Reason: pain) Qty: 10 0RF Referrals: Andrzej Khanna MD [Physician] - 2 weeks (Bilateral kidney stones) Lorne Vazquez MD [Primary Care Provider] - (Bilateral kidney stones) Stand Alone Forms: Work/School Release
== END 2021-12-02 01:22 | disposition home or self-care (01) ==
PROVIDERS: Emergency Provider Student in an Organized Health Care Education/Training Program; PCP Pediatrics
DX: N20.0 Calculus of kidney (principal)
CPT/HCPCS: 36415; 74176; 80053; 81001; 81003; 81025; 83690; 85025; 99284

== ENCOUNTER 2021-12-04 21:51 | Emergency (ER) | payer MEDICAID, SELFPAY ==
[2021-12-04 21:55] VITALS: BP 116/58; PULSE 83; RESP 18; TEMP 37.2; O2SAT 100; BMI 28.3
== END 2021-12-05 05:47 | disposition left against medical advice (07) ==
PROVIDERS: Emergency Provider Emergency Medicine
DX: J02.9 Acute pharyngitis, unspecified (principal)
CPT/HCPCS: 99281

== ENCOUNTER 2022-05-10 09:20 | Outpatient (REF) | payer MEDICAID, SELFPAY ==
[2022-05-10 17:36] LABS: Urine Cytology See Pathology rpt
== END 2022-05-10 09:21 | disposition home or self-care (01) ==
LOC: HO.LAB 09:20
PROVIDERS: PCP Registered Nurse; Visit Provider Nurse Practitioner Family
DX: N20.0 Calculus of kidney (principal); R31.29 Other microscopic hematuria
CPT/HCPCS: 88112; 99202

== ENCOUNTER 2022-05-25 20:44 | Emergency (ER) | payer MEDICAID, SELFPAY ==
[2022-05-25 21:00] VITALS: BP 128/72; PULSE 92; RESP 16; TEMP 37.2; O2SAT 99
== END 2022-05-25 22:33 | disposition left against medical advice (07) ==
PROVIDERS: Emergency Provider Emergency Medicine
DX: U07.1 COVID-19 (principal); R51.9 Headache, unspecified
CPT/HCPCS: 99281

== ENCOUNTER 2022-08-21 12:36 | Outpatient (REF) | payer MEDICAID, SELFPAY ==
--- NOTE | ~2022-08-21 | US_ITS ---
EXAMINATION: US RETROPERITONEAL LIMITED (RENAL ONLY) CLINICAL INFORMATION: Calculus of kidney. COMPARISON: CT abdomen and pelvis without contrast 12/01/2021. TECHNIQUE: Real-time imaging of the kidneys. FINDINGS: RIGHT KIDNEY: 11.4 x 4.0 x 4.4 cm (SAG x AP x TRV). The kidney is normal in size, contour, and echogenicity. Renal cortical thickness is normal. No focal parenchymal lesions or hydronephrosis. Few nonspecific punctate echogenic foci, unclear if these could reflect vascular reflectors or tiny stones, difficult to compare to prior given small size. LEFT KIDNEY: 11.4 x 5.3 x 4.1 cm (SAG x AP x TRV). The kidney is normal in size, contour, and echogenicity. Renal cortical thickness is normal. No focal parenchymal lesions or hydronephrosis. Few nonspecific punctate echogenic foci, unclear if these could reflect vascular reflectors or tiny stones, difficult to compare to prior given small size. Partially imaged liver appears echogenic suggestive of hepatic steatosis or underlying liver disease. This could be further characterized with a dedicated right upper quadrant ultrasound if clinically indicated. US/US renal BI IMPRESSION: Few nonspecific punctate echogenic foci, bilaterally unclear if these could reflect vascular reflectors or tiny stones, difficult to compare to prior given small size.
== END 2022-08-21 12:37 | disposition home or self-care (01) ==
LOC: HO.US 12:36
PROVIDERS: Visit Provider Nurse Practitioner Family
DX: N20.0 Calculus of kidney (principal)
CPT/HCPCS: 76775

== ENCOUNTER → 2022-09-07 09:24 | Outpatient (BNVA) | payer MEDICAID, SELFPAY | PROVIDERS: Visit Provider Nurse Practitioner Family | DX: N20.0 Calculus of kidney (principal); R31.29 Other microscopic hematuria | CPT/HCPCS: 99212 ==

== ENCOUNTER 2022-12-17 15:12 | Emergency (ER) | payer MEDICAID, SELFPAY ==
[2022-12-17 15:52] VITALS: BP 115/70; PULSE 65; RESP 18; TEMP 37.2; O2SAT 99; BMI 29.5
--- NOTE | 2022-12-17 16:04 | ED_ITS ---
HPI - General Adult General Chief complaint: Nausea/Vomiting/Diarrhea Stated complaint: Vomiting/headache/Dehydrated Time Seen by Provider: 12/17/22 16:09 Source: patient Mode of arrival: ambulatory Limitations: no limitations History of Present Illness HPI narrative: Patient is a 22-year-old female presenting in the emergency department with complaint of nausea and vomiting since this morning. Patient reports that she felt okay when she woke then at work developed nausea and vomiting. Denies abdominal pain. Denies diarrhea. Denies fevers. Denies history of GERD or ulcers. States one week prior she also had several days of nausea and vomiting, denies abdominal pain at that time as well. Denies any urinary symptoms. Denies any back or flank pain. Denies any known sick contacts. MD complaint: Nausea and vomiting Onset (ago): hour(s) Treatments prior to arrival: none Related Data Previous Rx's Medication Instructions Recorded pyridoxine (vitamin B6) 100 mg 100 mg PO DAILY 90 days #90 tabs 05/10/22 tablet ondansetron 4 mg disintegrating 4 mg PO Q8H PRN nausea and 12/17/22 tablet vomiting #10 tabs Allergies Allergy/AdvReac Type Severity Reaction Status Date / Time No Known Allergies Allergy Verified 09/07/22 12:08 [No Known Allergies*] Review of Systems Review of Systems: As per HPI. Yes all other systems are reviewed and are negative Constitutional: Constitutional: Reports as per HPI [facility] Past Medical History Medical History Bilateral nephrolithiasis No known health problems Social History Social History Alcohol intake: never Advance Directives: No Advance Directives Information Provided: No Physical Exam ED Vital Signs: Vital Signs - 24 hr 12/17/22 15:52 12/17/22 17:56 Temperature 99.0 F 98.3 F Pulse Rate 65 66 Respiratory Rate 18 18 Blood Pressure 115/70 118/71 Pulse Oximetry 99 98 Oxygen Delivery Method Room Air Room Air BMI result Body Mass Index 29.5 Vital signs have been reviewed and appear to be correct. Blood pressure normal. Heart rate normal. Respiratory rate normal. Temperature normal. Oxygen saturation normal. Const General: cooperative, healthy appearing and no acute distress Orientation/consciousness: oriented to person, oriented to place, oriented to time and patient oriented x3 Limitations: no limitations HENMT Head: Yes normocephalic and Yes atraumatic Ears: external ears normal General nose exam: Normal external nose present Face and sinus: Yes face symmetric Mouth: oropharynx normal and moist mucous membranes Throat: Yes uvula midline Eyes Pupils: Equal, round and reactive pupils present Neck Neck: Yes normal visual inspection and Yes supple Resp Effort & Inspection: normal respiratory effort and able to speak in complete sentences Auscultation: clear to auscultation bilaterally Cardio Rate: regular rate Rhythm: regular rhythm Heart sounds: S1 normal heart sound present and S2 normal heart sound present GI Palpation (GI): Soft to palpation and nontender Auscultation: normoactive bowel sounds General: Yes no CVA tenderness Back/Spine/Pelvis Back: no CVA tenderness Skin General skin exam: elasticity normal and turgor normal Neuro General: oriented to person, oriented to place, oriented to time, patient oriented x3, moves all extremities, no focal motor deficits and CN's II-XI intact bilaterally Cranial nerves: Yes Equal, round and reactive pupils present Cognition (Neuro): normal cognition Extrem General: Yes full ROM, Yes no pedal edema and Yes no calf tenderness Psych Mental Status: mental status grossly normal Affect: normal affect Thought process: Normal thought process present Course Course Course Narrative: Rme: 22 YOLD FEMALE PRESENTS TO THE ed FOR NAUSEA AND VOMITTING EVERYTIME SHE EATS. PATIETN STATES NO ABDOMINAL PAIN OR gu SYMPTOMS. pATIENT STATES DIARRHEA. Medications Administered Discontinued Medications Generic Name Dose Route Start Last Admin Trade Name Carlosq PRN Reason Stop Dose Admin Ondansetron HCl 4 mg 12/17/22 18:00 12/17/22 18:07 Ondansetron Odt 4 Mg Tab.Jaydedis TRANSLINGU 12/17/22 18:01 4 mg ONCE ONE Administration Medical Decision Making Medical Decision Making [facility] Narrative: Patient is a 22-year-old female presenting in the emergency department with complaint of nausea and vomiting since this morning. On exam patient is awake, A+Ox3, VS WNL, afebrile, normal neurological exam without focal deficits, abdomen soft and nontender, no CVA tenderness. Given reported symptoms and physical exam findings, initial differential includes gastritis, , GERD, peptic ulcer. Labs notable for negative HCG, no leukocytosis, no anemia, no electrolyte abnormalities. Patient unable to provide urine specimen while in the ED. Reports improvement of symptoms with ondansetron. Feel patient is stable for discharge home, will prescribe Zofran. Will refer patient to GI for further evaluation of her symptoms. Instructed patient to follow-up with PCP as well. Return precautions discussed at bedside. Patient verbalized understanding of and agreement with plan. Differential Diagnosis Differential Diagnoses: The differential diagnosis associated with the presentation includes As per [facility]. Lab Data [facility] Lab Attestation statement: I reviewed the patient's lab results. As per MDM. 12/17/22 16:45 12/17/22 16:45 Labs: Lab Results 12/17/22 12/17/22 Range/Units 16:45 16:45 WBC 7.3 (4.8-10.8) X10*3/uL RBC 4.80 (4.20-5.50) X10*6/uL Hgb 12.3 (12.0-16.0) g/dl Hct 38.1 (37.0-47.0) % MCV 79.4 L (80.0-98.0) fL MCH 25.6 L (27.0-33.0) pg MCHC 32.3 (31.0-35.0) g/dl RDW 13.5 (11.0-16.0) % Plt Count 388 (160-400) X10*3/uL MPV 8.6 L (9.4-12.3) fL Immature Gran % (Auto) 0.1 (0.0-0.4) % Neut % (Auto) 54.2 (45-73) % Lymph % (Auto) 35.7 (20-40) % [place] % (Auto) 8.2 (2-11) % Eos % (Auto) 1.5 (0-4) % Baso % (Auto) 0.3 (0-2) % Lymph # (Auto) 2.6 (1.2-4.9) X10*3/uL [place] # (Auto) 0.6 (0.1-1.2) X10*3/uL Eos # (Auto) 0.1 (0.0-0.4) X10*3/uL Baso # (Auto) 0.0 (0.0-0.2) X10*3/uL Abs Immat Gran (auto) 0.01 (0.00-0.03) X10*3/uL Absolute Neuts (auto) 4.0 (2.0-8.3) x10*3/uL Absolute Nucleated RBC 0.000 (0.0-0.012) X10*3/uL Nucleated RBC % (auto) 0.0 (0.0-0.2) /100WBC Sodium 142 (135-145) mmol/L Potassium 3.9 (3.3-5.1) mmol/L Chloride 110 H (96-108) mmol/L Carbon Dioxide 26 (22-29) mmol/L Anion Gap 10 L (12-20) BUN 9 (9-16) mg/dL Creatinine 0.85 (0.5-1.4) mg/dL Estim Creat Clear Calc 104.9 Estimated GFR > 60 Random Glucose 105 (60-115) mg/dL Calcium 9.5 D (8.4-10.2) mg/dL Total Bilirubin 0.4 (0.0-1.0) mg/dL AST 20 (5-31) U/L ALT 28 (0-31) U/L Alkaline Phosphatase 98 (39-117) U/L Total Protein 7.1 (6.5-8.0) g/dL Albumin 4.0 (3.5-5.0) g/dL Beta HCG, Quant < 2 mIU/mL External Record Review External record reviewed: Inpatient record, Office record and Outpatient record Prescription Management I considered prescription management with: Other Discharge Plan Discharge Clinical Impression: Nausea and vomiting Patient Disposition: Home, Self-Care Instructions: Diet for Stomach Ulcers and Gastritis (ED), Acute Nausea and Vomiting (ED) Additional Instructions: You were evaluated in the emergency department today for nausea and vomiting which is most likely due to irritation of the lining of your stomach. Your symptoms improved with medication in the ED. You can use Mylanta, which is available over the counter, to help manage your symptoms. You are also being prescribed ondansetron for nausea. Avoid spicy or acidic foods. Please follow up with your primary care physician within two days. Return to the emergency department if you experience shortness of breath, worsening or uncontrolled abdominal pain, chest pain, light headedness, fainting, persistent nausea and vomiting, bloody vomit or stools, black, tarry stools, or any other concerning symptoms. You are also being referred to the cathode builder if your symptoms return. Prescriptions: New ondansetron 4 mg tablet,disintegrating 4 mg PO Q8H PRN (Reason: nausea and vomiting) Qty: 10 0RF No Action pyridoxine (vitamin B6) 100 mg tablet 100 mg PO DAILY 90 Days Qty: 90 1RF Referrals: [facility] [Provider Group] Stand Alone Forms: Work/School Release Interventions: ED Discharge Assessment Last Done: 12/17/22 18:20 Discharge Date/Time: 12/17/22 18:21
[2022-12-17 16:48] LABS: MANUAL DIFF FLAG NO
[2022-12-17 16:58] LABS: Basophils Percent Auto 0.3 % (0-2); Eosinophils Absolute Auto 0.1 X10*3/uL (0.0-0.4); Eosinophils Percent Auto 1.5 % (0-4); Hematocrit 38.1 % (37.0-47.0); Hemoglobin 12.3 g/dl (12.0-16.0); Imm Gran Abs Auto 0.01 X10*3/uL (0.00-0.03); Imm Gran Pct Auto 0.1 % (0.0-0.4); Lymphocytes Absolute Auto 2.6 X10*3/uL (1.2-4.9); Lymphocytes Percent Auto 35.7 % (20-40); Mean Corpuscular HGB Conc 32.3 g/dl (31.0-35.0); Mean Corpuscular Hemoglobin 25.6 pg (27.0-33.0); Mean Corpuscular Volume 79.4 fL (80.0-98.0); Mean Platelet Volume 8.6 fL (9.4-12.3); Monocytes Absolute Auto 0.6 X10*3/uL (0.1-1.2); Monocytes Percent Auto 8.2 % (2-11); Neutrophils Percent Auto 54.2 % (45-73); Platelet Count 388 X10*3/uL (160-400); Red Cell Distribution Width 13.5 % (11.0-16.0); White Blood Count 7.3 X10*3/uL (4.8-10.8)
[2022-12-17 17:11] LABS: Alanine Aminotransferase 28 U/L (0-31); Alkaline Phosphatase 98 U/L (39-117); Anion Gap 10 (12-20); Aspartate Amino Transferase 20 U/L (5-31); Bilirubin Total 0.4 mg/dL (0.0-1.0); Blood Urea Nitrogen 9 mg/dL (9-16); Calcium 9.5 mg/dL (8.4-10.2); Carbon Dioxide 26 mmol/L (22-29); Chloride 110 mmol/L (96-108); Creatinine Clr Calc Pharmacy 104.9; Estimated Glomerular Filt Rate > 60; Glucose Random 105 mg/dL (60-115); Potassium 3.9 mmol/L (3.3-5.1); Sodium 142 mmol/L (135-145); Total Protein 7.1 g/dL (6.5-8.0)
[2022-12-17 17:12] LABS: HCG Quantitative < 2 mIU/mL
[2022-12-17 17:56] VITALS: BP 118/71; PULSE 66; RESP 18; TEMP 36.8; O2SAT 98
[2022-12-17] MEDS: Ondansetron ODT 4 MG TAB.RAPDIS TRANSLINGU (18:07)
== END 2022-12-17 18:21 | disposition home or self-care (01) ==
PROVIDERS: Physician Assistant; Emergency Provider Internal Medicine
DX: R11.2 Nausea with vomiting, unspecified (principal); Z79.899 Other long term (current) drug therapy
CPT/HCPCS: 36415; 80053; 84702; 85025; 99283

== ENCOUNTER 2023-03-07 09:37 | Outpatient (REF) | payer MEDICAID, SELFPAY ==
--- NOTE | ~2023-03-07 | US_ITS ---
EXAMINATION: US RETROPERITONEAL LIMITED (RENAL ONLY) CLINICAL INFORMATION: Calculus of kidney. COMPARISON: Ultrasound retroperitoneal limited 08/21/2022. CT abdomen and pelvis without contrast 12/01/2021. TECHNIQUE: Real-time imaging of the kidneys. FINDINGS: RIGHT KIDNEY: 11.1 x 4.1 x 4.4 cm (SAG x AP x TRV). The kidney is normal in size, contour, and echogenicity. Renal cortical thickness is normal. No focal parenchymal lesions or hydronephrosis. Possible 3 mm nonobstructing mid pole calculus. LEFT KIDNEY: 11.0 x 5.2 x 4.7 cm (SAG x AP x TRV). The kidney is normal in size, contour, and echogenicity. Renal cortical thickness is normal. No calculi or focal parenchymal lesions. No hydronephrosis. US/US renal BI IMPRESSION: Possible 3 mm nonobstructing right renal calculus. No hydronephrosis.
== END 2023-03-07 09:38 | disposition home or self-care (01) ==
LOC: HO.US 09:37
PROVIDERS: Visit Provider Nurse Practitioner Family
DX: N20.0 Calculus of kidney (principal)
CPT/HCPCS: 76775

== ENCOUNTER 2023-03-15 14:02 | Outpatient (AMB) | payer MEDICAID, SELFPAY ==
--- NOTE | 2023-03-15 14:24 | A.OFFVIS_ITS ---
Intake Intake Visit Reasons: 6m/US Intake Note: Patient is present for follow up renal stones Urology Medications: none Blood Thinner: none Traffic Director Required: No Accompanied by: Self / Same As Patient Allergies No Known Allergies [No Known Allergies*] Allergy (Verified 03/17/23 12:21) Medication List - Last Reconciled 03/17/23 by TIGRE Sapp No Known Home Meds HPI HPI Comments History of Present Illness Details Ekaterina is a pleasant 22 year old female patient of Dr. Sandoval who is accompanied by her significant other at [facility] office[facility]. She presents to the office today for follow-up of her nephrolithiasis. When asked sje reports to be doing and feeling well. Recent renal imaging results reviewed with the patient today. Right kidney with no focal parenchymal lesions or hydronephrosis. Possible 3 mm nonobstructing mid pole calculus. Left kidney with no calculi or focal parenchymal lesions. No hydronephrosis. When asked she denies any urinary issues or concerns. She does endorse to not be drinking much water on a daily basis and has not been taking her vitamin b6. She denies urinary urgency, urinary frequency, incontinence, nocturia, hematuria, dysuria, foul smelling urine, changes to urinary stream, flank pain, fever, and or chills. She is happy with her current voiding parameters. In office urinalysis results reviewed with the patient today. She denies any known work place chemical exposure and or smoking history. Discussed and stressed the importance of increasing water intake to assist with stone burden. She otherwise denies any other issues or concerns at this time. [facility] Medical History Bilateral nephrolithiasis No known health problems Social History Alcohol intake: never Review of Systems Const Reports no additional complaints Eyes Reports no additional complaints ENT Reports no additional complaints Card Reports no additional complaints Resp Reports no additional complaints GI Reports no additional complaints Reports as per HPI Musc Reports no additional complaints Neuro Reports no additional complaints Psych Reports no additional complaints Physical Exam Const General: cooperative, healthy appearing, comfortable, no acute distress, well developed, alert and awake Orientation/consciousness: patient oriented x3 Limitations: no limitations HEENT Head: Yes normal to inspection, Yes normocephalic and Yes atraumatic Eyes General: appearance normal, both eyes and all related structures Neck Neck: Yes normal visual inspection Chest Chest palpation & inspection: normal inspection of the chest Resp Effort & Inspection: normal respiratory effort and able to speak in complete sentences Cardio Rate: regular rate GI Inspection: Yes normal to inspection General: Yes no CVA tenderness Back/Spine/Pelvis Back: no CVA tenderness Neuro General: patient oriented x3 Psych Appearance: grossly normal and well kempt Mental Status: mental status grossly normal Speech and movement: Normal speech and movement present and Clear speech present Affect: normal affect Attitude: cooperative Thought process: Normal thought process present Thought content: Normal thought content present Insight: Good insight present (Psych) Judgement: Good judgement present (Psych) Results AMB Urinalysis, Automated UA Leukoctes 0 Adilia/uL Last Edit by [employer] on 03/15/23 14:33 UA Nitrite Negative Last Edit by [employer] on 03/15/23 14:33 UA Urobilinogen 0.2 mg/dL Last Edit by [employer] on 03/15/23 14:33 UA Protein 100 mg/dL Last Edit by [employer] on 03/15/23 14:33 UA pH 5.5 Last Edit by [employer] on 03/15/23 14:33 UA Blood 200 Yves/uL Last Edit by [employer] on 03/15/23 14:33 UA Specific [place] 1.030 Last Edit by [employer] on 03/15/23 14:33 UA Ketone Negative Last Edit by [employer] on 03/15/23 14:33 UA Bilirubin 0 mg/dL Last Edit by [employer] on 03/15/23 14:33 UA Glucose 0 mg/dL Last Edit by [employer] on 03/15/23 14:33 Results Reviewed Results Reviewed: Laboratory Last Values Urine pH (Auto) 5.5 03/15/23 14:31 Specific [place] (Auto) 1.030 03/15/23 14:31 Urine Protein (Auto) 100 mg/dL 03/15/23 14:31 Glucose (UA)(Auto) 0 mg/dL 03/15/23 14:31 Urine Ketones (Auto) Negative 03/15/23 14:31 Urine Blood (Auto) 200 Yves/uL 03/15/23 14:31 Urine Nitrite (Auto) Negative 03/15/23 14:31 Urine Bilirubin (Auto) 0 mg/dL 03/15/23 14:31 Urine Urobilinogen (Auto) 0.2 mg/dL 03/15/23 14:31 Leukocyte Esterase (Auto) 0 Adilia/uL 03/15/23 14:31 Date of Service: 03/07/23 EXAMINATION: US RETROPERITONEAL LIMITED (RENAL ONLY) CLINICAL INFORMATION: Calculus of kidney. COMPARISON: Ultrasound retroperitoneal limited 08/21/2022. CT abdomen and pelvis without contrast 12/01/2021. TECHNIQUE: Real-time imaging of the kidneys. FINDINGS: RIGHT KIDNEY: 11.1 x 4.1 x 4.4 cm (SAG x AP x TRV). The kidney is normal in size, contour, and echogenicity. Renal cortical thickness is normal. No focal parenchymal lesions or hydronephrosis. Possible 3 mm nonobstructing mid pole calculus. LEFT KIDNEY: 11.0 x 5.2 x 4.7 cm (SAG x AP x TRV). The kidney is normal in size, contour, and echogenicity. Renal cortical thickness is normal. No calculi or focal parenchymal lesions. No hydronephrosis. IMPRESSION: Possible 3 mm nonobstructing right renal calculus. No hydronephrosis. Assessment & Plan Assessment & Plan (1) Microscopic hematuria: Code(s): R31.29 - Other microscopic hematuria (2) Bilateral nephrolithiasis: Code(s): N20.0 - Calculus of kidney (3) Proteinuria: Code(s): R80.9 - Proteinuria, unspecified Plan In office urinalysis results reviewed with the patient; as noted above Discussed at length potential causes for microscopic hematuria as well as proteinuria. Discussed further microscopic hematuria work up at length Will refer to nephrology for proteniuria as discussed Patient denies any bothersome urinary issues or concerns at this time Discussed metabolic workup Renal ultrasound in 6 months Discussed and stressed the importance of taking medications as prescribed and drinking plenty of water daily Discussed adding one ounce of lemon juice to the water daily. Follow up in 6 months with imaging to be completed piror; or sooner with any issues, concerns, or questions. Orders: Orders US renal BI 6 Months N20.0 - Calculus of kidney AMB Urinalysis Automated 03/15/23 Z13.9 - Encounter for screening, unspecified Referrals Nephrology Referral R80.9 - Proteinuria, unspecified Patient Instructions: The patient had an opportunity to ask questions regarding the treatment plan. All questions were answered. Physical exam, labs, and imaging were discussed and reviewed in detail. As well as risks, benefits, and discussion of treatment choices. No major barriers to understanding were identified. The patient expressed understanding and agreement with the above treatment plan. The patient was made aware they should contact our office by phone for worsening of their current condition, the appearance of new symptoms, or with any questions or concerns. Compliance is encouraged with any medications and follow up testing that is ordered. It is a privilege to be allowed the opportunity to participate in? your urological care.? Again, if you have any questions or concerns If you have any questions or concerns please do not hesitate to contact me. The office is [phone]. This note is constructed using voice recognition software. While every effort has been made to ensure accuracy refuge worker errors may have been included. Yours sincerely, TIGRE Sapp Coding Level of Care Code Est Pt Level 3 (82015) Diagnoses Microscopic hematuria R31.29 Bilateral nephrolithiasis N20.0 Proteinuria R80.9
== END 2023-03-15 14:53 | disposition home or self-care (01) ==
PROVIDERS: Visit Provider Nurse Practitioner Family
DX: R31.29 Other microscopic hematuria (principal); N20.0 Calculus of kidney; R80.9 Proteinuria, unspecified
CPT/HCPCS: 99213

== ENCOUNTER → 2023-03-15 14:02 | Outpatient (BNVA) | payer MEDICAID, SELFPAY | PROVIDERS: Visit Provider Nurse Practitioner Family | DX: R31.29 Other microscopic hematuria (principal); R80.9 Proteinuria, unspecified; N20.0 Calculus of kidney | CPT/HCPCS: 81003; 99212 ==

== ENCOUNTER 2023-04-02 15:01 | Outpatient (REF) | payer MEDICAID, SELFPAY ==
[2023-04-02 17:44] LABS: Appearance Urine Clear; Color Urine Yellow; Glucose Urine UA Negative (Negative); Leukocyte Esterase Urine Negative (Negative); Nitrite Urine Negative (Negative); Specific Gravity - Urine 1.025 (1.005-1.025); UMIC TRIGGER UA YES; Urine Blood Small (1+) (Negative); Urine Ketones Negative (Negative); Urine Protein 100 (2+) mg/dL (Neg-Trace)
[2023-04-02 17:50] LABS: Bacteria Urine 2+ (None Seen); Hyaline Casts Urine 0-2 /LPF (0-2); WBC Urine 0-5 /HPF (0-5)
== END 2023-04-02 15:02 | disposition home or self-care (01) ==
LOC: HO.LAB 15:01
PROVIDERS: Visit Provider Internal Medicine Hypertension Specialist
DX: R80.9 Proteinuria, unspecified (principal); D64.9 Anemia, unspecified; Z87.442 Personal history of urinary calculi
CPT/HCPCS: 81001; 99202

== ENCOUNTER 2023-04-02 15:18 | Outpatient (AMB) | payer MEDICAID, SELFPAY ==
--- NOTE | 2023-04-02 15:08 | HO.NEPHOV_ITS ---
HPI HPI Comments History of Present Illness Details Young woman with a history of nephrolithiasis has been referred for evaluation of proteinuria. She has had 5 stones thus far. She has 1 stone at the present time. Currently she is asymptomatic. Urinalysis in the past showed 1+ protein by dipstick. A year ago she had both protein and blood hours repeat UA was unremarkable. She has no other systemic complaints like joint pain rash edema. No gross hematuria. No family history of any current tissue disease. [facility] Medical History (Updated 04/02/23 @ 16:00 by Tyler Hanson MD) Proteinuria Bilateral nephrolithiasis No known health problems Social History Alcohol intake: never Vital Signs 04/02/23 15:09 Height 5 ft 4 in Weight 177 lb 8 oz BMI 30.5 BP 120/78 Blood Pressure Location Rt brachial Position Sitting Pulse 82 Pulse Source Pulse Oximeter Pulse Oximetry (%) 99 Oxygen Delivery Method Room Air Physical Exam Vital Signs: Last Vital Signs Pulse 82 04/02/23 15:09 BP 120/78 04/02/23 15:09 Pulse Ox 99 04/02/23 15:09 Oxygen Delivery Method Room Air 04/02/23 15:09 BMI result Body Mass Index 30.5 Const General: comfortable; No acute distress Orientation/consciousness: patient oriented x3 Eyes General: appearance normal, both eyes and all related structures Visual Pathak: normal visual pathak by confrontation Neck Neck: Yes supple and Yes no JVD Resp Effort & Inspection: normal respiratory effort and respiratory effort not decreased Auscultation: rhonchi Cardio Palpation: no palpable S3 and no palpable S4 Heart sounds: no rubs GI Inspection: Yes normal to inspection Palpation (GI): Soft to palpation Percussion: Yes normal to percussion Auscultation: normal bowel sounds General: Yes no CVA tenderness Back/Spine/Pelvis Back: no CVA tenderness Skin General skin exam: no petechiae and no purpura Rashes: other (Acanthosis nigricans noted in the nape of the neck) Neuro General: patient oriented x3 and no focal motor deficits Extrem General: No clubbing and No edema Assessment & Plan Assessment & Plan (1) Bilateral nephrolithiasis: Code(s): N20.0 - Calculus of kidney Plan: 22-year-old woman with multiple renal stones. I will obtain a 24 urine collection and initiate the metabolic workup for nephrolithiasis. In the meantime encouraged her to stand low-sodium diet. She should increase her fluid intake to maintain urine output of 2 L. Continue follow-up with Urology (2) Proteinuria: Code(s): R80.9 - Proteinuria, unspecified Plan: Urine dipstick showed proteinuria. I will quantify proteinuria with a urine protein creatinine ratio. Repeat urinalysis to screen for micro hematuria. Given the fact that she has acanthosis nigricans I will check hemoglobin A1c and fasting blood sugar. I have encouraged her to increase physical activity and lose some weight. Next (3) Anemia: Code(s): D64.9 - Anemia, unspecified Qualifiers: Anemia type: iron deficiency Plan: Significant iron deficiency has been documented. She has history of excessive menstrual bleeding at times. I prescribed iron tablets and increase her to follow-up with PCP. Orders: Orders Calcium, 24 Hr Ur Today N20.0 - Calculus of kidney Oxalate, 24 Hr Today N20.0 - Calculus of kidney Uric Acid, 24Hr Urine Group Today N20.0 - Calculus of kidney UA and rflx microscopic Today N20.0 - Calculus of kidney, R80.9 - Proteinuria, unspecified Sodium, 24Hr Urine Group Today N20.0 - Calculus of kidney Creatinine, 24 Hr Group Today N20.0 - Calculus of kidney Glucose Fasting Today N20.0 - Calculus of kidney, R80.9 - Proteinuria, unspecified Hemoglobin A1c Today N20.0 - Calculus of kidney, R80.9 - Proteinuria, unspecified Medications: New ferrous sulfate 325 mg PO DAILY 100 tabs 3RF Coding Level of Care Code New Pt Level 4 (98699) Diagnoses Bilateral nephrolithiasis N20.0 Proteinuria R80.9 Anemia D64.9 Anemia type: iron deficiency Results Reviewed Nephrology Results: Hgb 12.3 g/dl (12.0-16.0) 12/17/22 WBC 7.3 X10*3/uL (4.8-10.8) 12/17/22 Plt Count 388 X10*3/uL (160-400) 12/17/22 Sodium 142 mmol/L (135-145) 12/17/22 Potassium 3.9 mmol/L (3.3-5.1) 12/17/22 Chloride 110 mmol/L (96-108) H 12/17/22 Carbon Dioxide 26 mmol/L (22-29) 12/17/22 BUN 9 mg/dL (9-16) 12/17/22 Creatinine 0.85 mg/dL (0.5-1.4) 12/17/22 Calcium 9.5 mg/dL (8.4-10.2) 12/17/22 Urine Protein 1+ MG/DL (NEG-TRACE) H 12/01/21 Renal US 03/07/23
[2023-04-02 15:09] VITALS: BP 120/78; PULSE 82; O2SAT 99; BMI 30.5
== END 2023-04-02 15:38 | disposition home or self-care (01) ==
PROVIDERS: Visit Provider Internal Medicine Hypertension Specialist
DX: N20.0 Calculus of kidney (principal); R80.9 Proteinuria, unspecified; D64.9 Anemia, unspecified
CPT/HCPCS: 99204

== ENCOUNTER 2023-04-04 17:05 | Outpatient (REF) | payer MEDICAID, SELFPAY ==
[2023-04-04 17:29] LABS: Total Volume 24 Hour Urine 1150 mL
[2023-04-04 17:48] LABS: Sodium 24 Hr Urine 157.6 mmol/Day (40-220)
[2023-04-04 17:58] LABS: Glucose Fasting 76 mg/dL (60-99)
[2023-04-04 19:08] LABS: Creatinine, 24Hr Urine 1.5 G/Day (1.0-2.0); Creatinine, mg/dL 128.33
[2023-04-05 05:16] LABS: Estimated Average Glucose 97 mg/dL
[2023-04-06 18:59] LABS: Calcium, 24 Hr Urine 177 mg/24 h; Calcium/Creatinine Ratio 125 mg/g creat (30-275); Creatinine 24Hr Urine 1.41 g/24 h (0.50-2.15)
[2023-04-10 06:43] LABS: 24hr Urine Total Volume 1150 mL
== END 2023-04-04 17:06 | disposition home or self-care (01) ==
LOC: HO.LAB 17:05
PROVIDERS: PCP Registered Nurse; Visit Provider Internal Medicine Hypertension Specialist
DX: R80.9 Proteinuria, unspecified (principal); N20.0 Calculus of kidney
CPT/HCPCS: 36415; 82340; 82947; 83036; 83945; 84300

== ENCOUNTER 2023-05-01 15:17 | Outpatient (AMB) | payer MEDICAID, SELFPAY ==
[2023-05-01 15:34] VITALS: BP 116/70; PULSE 91; O2SAT 98; BMI 30.7
--- NOTE | 2023-05-01 15:34 | HO.NEPHOV ---
HPI HPI Comments History of Present Illness Details Young woman with a history of nephrolithiasis has been referred for evaluation of proteinuria. She has had 5 stones thus far. She has 1 stone at the present time. Currently she is asymptomatic. Urinalysis in the past showed 1+ protein by dipstick. A year ago she had both protein and blood hours repeat UA was unremarkable. She has no other systemic complaints like joint pain rash edema. No gross hematuria. No family history of any current tissue disease. [facility] Medical History Proteinuria Bilateral nephrolithiasis No known health problems Social History Alcohol intake: never Vital Signs 05/01/23 15:34 Height 5 ft 4 in Weight 179 lb 2 oz BMI 30.7 BP 116/70 Blood Pressure Location Rt brachial Position Sitting Pulse 91 Pulse Source Pulse Oximeter Pulse Oximetry (%) 98 Oxygen Delivery Method Room Air Physical Exam Vital Signs: Last Vital Signs Pulse 91 05/01/23 15:34 BP 116/70 05/01/23 15:34 Pulse Ox 98 05/01/23 15:34 Oxygen Delivery Method Room Air 05/01/23 15:34 BMI result Body Mass Index 30.7 Const General: comfortable Nutritional Appearance: well nourished Orientation/consciousness: patient oriented x3 HEENT Head: No normal to inspection Mouth: moist mucous membranes Neck Neck: Yes supple and Yes no JVD Resp Auscultation: clear to auscultation bilaterally, no rales and rub present Cardio Jugular venous distension: no JVD Palpation: no palpable S3 and no palpable S4 Heart sounds: no rubs GI Palpation (GI): Soft to palpation and nontender Percussion: No Fluid wave present General: Yes no CVA tenderness Back/Spine/Pelvis Back: no CVA tenderness Skin General skin exam: no rashes or lesions noted Neuro General: patient oriented x3 Extrem General: Yes no pedal edema and No clubbing Assessment & Plan Assessment & Plan (1) Bilateral nephrolithiasis: Code(s): N20.0 - Calculus of kidney Plan: 22-year-old woman with multiple renal stones. 24 urine collection for nephrolithiasis was discussed with the patient. She needs to increase her fluid intake. She should increase her fluid intake to maintain urine output of 2 L. Continue with low-salt diet. Continue follow-up with Urology (2) Proteinuria: Code(s): R80.9 - Proteinuria, unspecified Plan: Urine dipstick showed proteinuria. I will quantify proteinuria with a urine protein creatinine ratio. Repeat urinalysis to screen for micro hematuria. Hematuria is related to renal stones. Given protein creatinine ratio is pending and has been reordered Given the fact that she has acanthosis nigricans I will check hemoglobin A1c and fasting blood sugar. I have encouraged her to increase physical activity and lose some weight. Next (3) Anemia: Code(s): D64.9 - Anemia, unspecified Qualifiers: Anemia type: iron deficiency Plan: Significant iron deficiency has been documented. She has history of excessive menstrual bleeding at times. Stay on iron tablets. Recheck CBC prior to next visit Orders: Orders Creatinine 3 Months N20.0 - Calculus of kidney Total Protein Urine Random 3 Months N20.0 - Calculus of kidney Creatinine Urine 3 Months N20.0 - Calculus of kidney Electrolytes 3 Months N20.0 - Calculus of kidney Blood Urea Nitrogen 3 Months N20.0 - Calculus of kidney Calcium 3 Months N20.0 - Calculus of kidney Sodium Urine Random 3 Months N20.0 - Calculus of kidney UA and rflx microscopic 3 Months N20.0 - Calculus of kidney Complete Blood Count no Diff 3 Months D64.9 - Anemia, unspecified, R31.29 - Other microscopic hematuria Coding Level of Care Code Est Pt Level 4 (32068) Diagnoses Bilateral nephrolithiasis N20.0 Proteinuria R80.9 Anemia D64.9 Anemia type: iron deficiency Results Reviewed Nephrology Results: Hgb 12.3 g/dl (12.0-16.0) 12/17/22 WBC 7.3 X10*3/uL (4.8-10.8) 12/17/22 Plt Count 388 X10*3/uL (160-400) 12/17/22 Sodium 142 mmol/L (135-145) 12/17/22 Potassium 3.9 mmol/L (3.3-5.1) 12/17/22 Chloride 110 mmol/L (96-108) H 12/17/22 Carbon Dioxide 26 mmol/L (22-29) 12/17/22 BUN 9 mg/dL (9-16) 12/17/22 Creatinine 0.85 mg/dL (0.5-1.4) 12/17/22 Calcium 9.5 mg/dL (8.4-10.2) 12/17/22 Urine Protein 100 (2+) mg/dL (Neg-Trace) H 04/02/23 Renal US 03/07/23
== END 2023-05-01 15:51 | disposition home or self-care (01) ==
PROVIDERS: PCP Registered Nurse; Referring Provider Registered Nurse; Visit Provider Internal Medicine Hypertension Specialist
DX: N20.0 Calculus of kidney (principal); R80.9 Proteinuria, unspecified; D64.9 Anemia, unspecified
CPT/HCPCS: 99214

== ENCOUNTER → 2023-05-01 15:17 | Outpatient (BNVA) | payer MEDICAID, SELFPAY | PROVIDERS: Visit Provider Internal Medicine Hypertension Specialist | DX: N20.0 Calculus of kidney (principal); R80.9 Proteinuria, unspecified; D64.9 Anemia, unspecified | CPT/HCPCS: 99212 ==

== ENCOUNTER 2023-06-10 18:05 | Emergency (ER) | payer MEDICAID, SELFPAY ==
--- NOTE | ~2023-06-10 | CT_ITS ---
EXAMINATION: CT ABDOMEN AND PELVIS WITH CONTRAST CLINICAL INFORMATION: Diffuse abdominal pain/vomiting COMPARISON: CT abdomen pelvis 12/01/2021. TECHNIQUE: Multidetector volumetric images were obtained from the superior aspect of the liver through the pubic symphysis following administration 85 mL of Omnipaque 350 intravenous contrast. Sagittal and coronal reformatted images were obtained on the technologist's workstation. Oral contrast: No This CT examination was performed using dose optimization techniques as appropriate, variously including the following: *Automated exposure control *Adjustment of mA and/or kV according to patient size (this includes techniques or standardized protocols for targeted exams where dose is matched to indication/reason for exam; i.e. extremities or head) *Use of iterative reconstruction technique DLP: 595 mGy-cm FINDINGS: LUNG BASES: Unremarkable. LIVER AND BILIARY TREE: Unremarkable. GALLBLADDER: Unremarkable. PANCREAS: Unremarkable. SPLEEN: Unremarkable. ADRENAL GLANDS: Unremarkable. KIDNEYS AND URETERS: Redemonstrated punctate nonobstructing bilateral renal calculi, measuring 2 mm on each side. Otherwise unremarkable GASTROINTESTINAL TRACT: Unremarkable. Normal appendix. VASCULAR: Unremarkable LYMPH NODES: No lymphadenopathy. PERITONEUM: No ascites. BLADDER: Decompressed, limiting evaluation.. PELVIC VISCERA: Left ovarian physiologic corpus luteum. Trace pelvic free fluid, may be physiologic. ABDOMINAL AND PELVIC WALL: Unremarkable. OSSEOUS STRUCTURES: Unremarkable. CT/CT abdomen pelvis w IV con IMPRESSION: No acute abnormality of the abdomen or pelvis.
--- NOTE | ~2023-06-10 | US_ITS ---
EXAMINATION: US ABDOMEN LIMITED CLINICAL INFORMATION: Right upper quadrant abdominal pain. Evaluate gallbladder for acute cholecystitis. COMPARISON: Selected images of the abdomen and pelvic CT scan of 06/10/2023 TECHNIQUE: Real-time imaging of the right upper quadrant abdominal viscera. FINDINGS: GALLBLADDER: Normal. The gallbladder is physiologically distended without evidence of stones, sludge, polyps, wall thickening or pericholecystic fluid. COMMON BILE DUCT: The visualized proximal common bile duct is normal in caliber measuring 0.2 cm in diameter. FREE FLUID: None. US/US abdomen limited IMPRESSION: No evidence of cholelithiasis or acute cholecystitis. Unremarkable sonographic appearance of the gallbladder.
[2023-06-10 18:10] VITALS: BP 137/84; PULSE 74; RESP 16; TEMP 37; O2SAT 98; BMI 30.8
--- NOTE | 2023-06-10 18:17 | ED.GENADULT ---
HPI - General Adult General Chief complaint: Abdominal Pain Stated complaint: abd pain Time Seen by Provider: 06/10/23 18:20 Source: patient and family Mode of arrival: ambulatory Limitations: no limitations History of Present Illness HPI narrative: 23-year-old female with a history of renal colic presents to the ER with complaints of diffuse abdominal pain and nausea after eating a egg sandwich this morning. Patient reports last week she had similar pain for about 4 days which improved with Pepto-Bismol. She denies any vomiting, diarrhea, urinary symptoms, vaginal discharge. Patient reports history of renal colic but this feels quite different. Related Data Previous Rx's Medication Instructions Recorded ferrous sulfate 325 mg (65 mg 325 mg PO DAILY #100 tabs 04/02/23 iron) tablet omeprazole 40 mg capsule,delayed 40 mg PO DAILY #14 caps 06/10/23 release ondansetron 4 mg disintegrating 4 mg PO Q6H PRN nausea and 06/10/23 tablet vomiting #20 tabs Allergies Allergy/AdvReac Type Severity Reaction Status Date / Time No Known Allergies Allergy Verified 06/10/23 18:10 [No Known Allergies*] Review of Systems Review of Systems: Yes all other systems are reviewed and are negative Constitutional: Constitutional: Reports no additional constitutional complaints, Denies body ache(s), Denies chills, Denies fever(s), Denies headache(s) and Denies weakness Eyes: Eyes: Reports no additional eye complaints and Denies change in vision ENT: Reports system reviewed and no additional complaints, except as documented, Denies dizziness, Denies headache(s), Denies nasal congestion, Denies nasal discharge and Denies neck pain Cardiovascular: Cardiovascular: Reports no additional cardiovascular complaints, Denies chest pain, Denies leg edema and Denies dyspnea Respiratory: Respiratory: Reports no additional respiratory complaints, Denies cough and Denies dyspnea Gastrointestinal: Gastrointestinal: Reports no additional gastrointestinal complaints, Reports abdominal pain, Denies constipation, Denies diarrhea, Reports nausea and Denies vomiting Genitourinary: Genitourinary: Reports no additional female genitourinary complaints, Denies dysuria, Denies pelvic pain, Denies urinary incontinence and Denies vaginal discharge Musculoskeletal: Musculoskeletal: Reports no additional musculoskeletal complaints, Denies back pain, Denies arthralgias, Denies joint swelling, Denies neck pain, Denies numbness and Denies tingling Integumentary/Breasts: Skin/Breast: Reports system reviewed and no additional complaints, except as docu and Denies rash Neurologic: Reports system reviewed and no additional complaints, except as documented, Denies Abnormal speech present, Denies dizziness, Denies headache(s), Denies numbness, Denies tingling and Denies weakness PMFSH Past Medical History Attestation statement: The following information was validated with the patient. Source: old records reviewed and nursing notes reviewed Medical History Proteinuria Bilateral nephrolithiasis No known health problems Social History Social History Alcohol intake: never Smoked in Last 30 Days: No Use of substances other than those prescribed or required for medical reasons: No Advance Directives: No Advance Directives Information Provided: Yes Physical Exam ED Vital Signs: Vital Signs - 24 hr 06/10/23 18:10 06/10/23 20:17 Temperature 98.6 F Pulse Rate 74 55 Respiratory Rate 16 16 Blood Pressure 137/84 107/61 Pulse Oximetry 98 99 Oxygen Delivery Method Room Air Room Air BMI result Body Mass Index 30.8 Const General: cooperative, healthy appearing, comfortable and no acute distress Orientation/consciousness: patient oriented x3 Limitations: no limitations HENMT Head: Yes normal to inspection Ears: hearing grossly normal bilaterally General nose exam: Normal external nose present Face and sinus: Yes normal facial exam Mouth: Normal oral and palatal mucosa present Throat: Yes posterior oropharynx normal Eyes General: appearance normal, both eyes and all related structures Pupils: Equal, round and reactive pupils present Neck Neck: Yes normal visual inspection Chest Chest palpation & inspection: normal inspection of the chest Resp Effort & Inspection: normal respiratory effort Auscultation: clear to auscultation bilaterally Cardio Rate: regular rate Rhythm: regular rhythm Peripheral pulses: Peripheral pulses 2+ throughout GI Inspection: Yes normal to inspection Palpation (GI): Soft to palpation, Tenderness to palpation present (GI) (diffusely tender ) with no rebound tenderness and no guarding Auscultation: normal bowel sounds Back/Spine/Pelvis Thoracic/Lumbar Spine: thoracic and lumbar spine normal to inspection Skin General skin exam: no rashes or lesions noted Neuro General: patient oriented x3, no focal motor deficits and normal sensation to monofilament Cranial nerves: Yes Equal, round and reactive pupils present Cognition (Neuro): normal cognition Speech: No Abnormal speech present Gait exam (Neuro): Normal gait present Motor exam (neuro): 5/5 motor strength present throughout Extrem General: Yes normal to inspection Course Course Course Narrative: RME: 23 yold female presents to the ED for generalized abdominal pain with nausea. labs ordered. Reevaluation(s) Reevaluation #1: 1999-CT is negative. Patient continues to have pain more focal in the right upper quadrant epigastric area. Will obtain abdominal ultrasound to rule out acute cholecystitis. Will provide additional analgesia Reevaluation #2: 2119-ultrasound is negative for any acute finding. Plan for discharge home with outpatient follow-up. Reviewed worrisome signs and symptoms when to return to the emergency room. Comfortable plan for discharge home. Medications Administered Discontinued Medications Generic Name Dose Route Start Last Admin Trade Name Freq PRN Reason Stop Dose Admin Famotidine 20 mg 06/10/23 19:59 06/10/23 20:12 Famotidine/Pf 20 Mg/2 Ml Vial IVPUSH 06/10/23 20:00 20 mg ONCE ONE Administration Sodium Chloride 1,000 mls @ 999 mls/hr 06/10/23 18:30 06/10/23 19:40 Ns IV 06/10/23 19:30 Infused .Q1H1M KRISTOPHER Infusion Iohexol 100 ml 06/10/23 19:29 06/10/23 19:30 Iohexol 350 Mg/Ml 100 Ml Infus..Btl IV 06/10/23 19:30 85 ml ONCE ONE Administration Ketorolac Tromethamine 15 mg 06/10/23 19:59 06/10/23 20:12 Ketorolac Tromethamine 15 Mg/Ml Vial IVPUSH 06/10/23 20:00 15 mg ONCE ONE Administration Morphine Sulfate 4 mg 06/10/23 18:24 06/10/23 18:38 Morphine Sulfate 4 Mg/Ml Cartridge IVPUSH 06/10/23 18:25 4 mg ONCE ONE Administration Protocol Ondansetron HCl 4 mg 06/10/23 18:24 06/10/23 18:39 Ondansetron Hcl 4 Mg/2 Ml Vial IVPUSH 06/10/23 18:25 4 mg ONCE ONE Administration Ondansetron HCl 4 mg 06/10/23 21:31 06/10/23 21:33 Ondansetron Odt 4 Mg Tab.Gareth GOLDSMITH 06/10/23 21:32 4 mg ONCE ONE Administration Medical Decision Making Medical Decision Making [facility] Narrative: 23-year-old female with a history of renal colic presents to the ER with complaints of diffuse abdominal pain and nausea after eating a egg sandwich this morning. Patient reports last week she had similar pain for about 4 days which improved with Pepto-Bismol. She denies any vomiting, diarrhea, urinary symptoms, vaginal discharge. Patient reports history of renal colic but this feels quite different. On exam the patient is diffusely tender. Her abdomen has no rebound or guarding. She is normal bowel sounds. Will obtain labs, UA, urine , CT A/P, viral testing Will provide analgesia, antiemetics and IV fluids Differential Diagnosis Differential Diagnoses: The differential diagnosis associated with the presentation includes Cholelithiasis, cholecystitis, gastritis, GERD, acute appendicitis Admission/Observation Consideration of admission/observation: Escalation of care including admission/observation considered Lab Data [facility] Lab Attestation statement: I reviewed the patient's lab results. 06/10/23 18:34 06/10/23 18:34 Labs: Lab Results 06/10/23 06/10/23 06/10/23 Range/Units 18:34 18:45 19:06 WBC 9.2 (4.8-10.8) X10*3/uL RBC 5.16 (4.20-5.50) X10*6/uL Hgb 12.8 (12.0-16.0) g/dl Hct 38.4 (37.0-47.0) % MCV 74.4 L (80.0-98.0) fL MCH 24.8 L (27.0-33.0) pg MCHC 33.3 (31.0-35.0) g/dl RDW 16.8 H (11.0-16.0) % Plt Count 406 H (160-400) X10*3/uL MPV 8.4 L (9.4-12.3) fL Immature Gran % (Auto) 0.2 (0.0-0.4) % Neut % (Auto) 56.0 (45-73) % Lymph % (Auto) 33.8 (20-40) % [place] % (Auto) 8.5 (2-11) % Eos % (Auto) 1.2 (0-4) % Baso % (Auto) 0.3 (0-2) % Lymph # (Auto) 3.1 (1.2-4.9) X10*3/uL [place] # (Auto) 0.8 (0.1-1.2) X10*3/uL Eos # (Auto) 0.1 (0.0-0.4) X10*3/uL Baso # (Auto) 0.0 (0.0-0.2) X10*3/uL Abs Immat Gran (auto) 0.02 (0.00-0.03) X10*3/uL Absolute Neuts (auto) 5.2 (2.0-8.3) x10*3/uL Absolute Nucleated RBC 0.000 (0.0-0.012) X10*3/uL Nucleated RBC % (auto) 0.0 (0.0-0.2) /100WBC Sodium 140 (135-145) mmol/L Potassium 3.7 (3.3-5.1) mmol/L Chloride 107 (96-108) mmol/L Carbon Dioxide 23 (22-29) mmol/L Anion Gap 14 (12-20) BUN 10 (9-16) mg/dL Creatinine 0.79 (0.5-1.4) mg/dL Estim Creat Clear Calc 114.3 Estimated GFR > 60 Random Glucose 98 (60-115) mg/dL Calcium 9.7 (8.4-10.2) mg/dL Total Bilirubin 0.3 (0.0-1.0) mg/dL AST 18 (5-31) U/L ALT 24 (0-31) U/L Alkaline Phosphatase 95 (39-117) U/L Total Protein 7.7 (6.5-8.0) g/dL Albumin 4.1 (3.5-5.0) g/dL Lipase 18 (8-78) U/L Beta HCG, Quant < 2 mIU/mL Urine Color Yellow Urine Appearance Clear Urine pH 5.5 (5.0-9.0) Ur Specific Turner >= 1.030 H (1.005-1.025) Urine Protein 100 (2+) H (Neg-Trace) mg/dL Urine Glucose (UA) Negative (Negative) mg/dL Urine Ketones Trace (Negative) mg/dL Urine Blood Small (1+) H (Negative) Urine Nitrite Negative (Negative) Ur Leukocyte Esterase Negative (Negative) Urine RBC 11-20 H (0-2) /HPF Urine WBC 0-5 (0-5) /HPF Ur Squamous Epith Cells 3-5 (0-2) /HPF Urine Bacteria Trace (None Seen) Hyaline Casts 0-2 (0-2) /LPF COVID-19 (MADINA) Negative (Negative) COVID-19 Clin Com See Note Independent Interpretation I performed an independent interpretation of an: CT Scan Interpretation: I independently viewed the CT scan agree with the radiology report Radiology Impression Discussion of test interpretation with radiology: I have reviewed the radiologist's reading. Radiologist Impression: INDINGS: LUNG BASES: Unremarkable. LIVER AND BILIARY TREE: Unremarkable. GALLBLADDER: Unremarkable. PANCREAS: Unremarkable. SPLEEN: Unremarkable. ADRENAL GLANDS: Unremarkable. KIDNEYS AND URETERS: Redemonstrated punctate nonobstructing bilateral renal calculi, measuring 2 mm on each side. Otherwise unremarkable GASTROINTESTINAL TRACT: Unremarkable. Normal appendix. VASCULAR: Unremarkable LYMPH NODES: No lymphadenopathy. PERITONEUM: No ascites. BLADDER: Decompressed, limiting evaluation.. PELVIC VISCERA: Left ovarian physiologic corpus luteum. Trace pelvic free fluid, may be physiologic. ABDOMINAL AND PELVIC WALL: Unremarkable. OSSEOUS STRUCTURES: Unremarkable. CT/CT abdomen pelvis w IV con IMPRESSION: No acute abnormality of the abdomen or pelvis. Independent Historian Clinical information obtained from an independent historian. History obtained from or confirmed by: Friend Prescription Management I considered prescription management with: Pain Medication Discharge Plan Discharge Clinical Impression: Abdominal pain Patient Disposition: Home, Self-Care Instructions: Abdominal Pain (ED) Additional Instructions: Your CT scan and ultrasound are reassuring Your lab work is normal. Your urine testing shows some signs of infection Your COVID test is negative Please eat a bland diet Advance her diet as tolerated Follow up with your primary care doctor outpatient as you might need additional testing for any continued symptoms Prescriptions: New ondansetron 4 mg tablet,disintegrating 4 mg PO Q6H PRN (Reason: nausea and vomiting) Qty: 20 0RF omeprazole 40 mg capsule,delayed release(DR/EC) 40 mg PO DAILY Qty: 14 0RF No Action ferrous sulfate 325 mg (65 mg iron) tablet 325 mg PO DAILY Qty: 100 3RF Referrals: Bethany Almanzar, [employer] [Primary Care Provider] - 1 week Stand Alone Forms: Work/School Release Interventions: ED Discharge Assessment Last Done: 06/10/23 21:44 Discharge Date/Time: 06/10/23 21:45
[2023-06-10] MEDS: Morphine Sulfate 4 MG/ML CARTRIDGE IVPUSH (18:38)
[2023-06-10] MEDS: 0.9 % Sodium Chloride 1,000 ML 999 ML IV (18:38)
[2023-06-10 18:39] LABS: MANUAL DIFF FLAG NO
[2023-06-10] MEDS: ondansetron HCL 4 MG/2 ML VIAL IVPUSH (18:39)
[2023-06-10 18:40] LABS: Basophils Percent Auto 0.3 % (0-2); Eosinophils Absolute Auto 0.1 X10*3/uL (0.0-0.4); Eosinophils Percent Auto 1.2 % (0-4); Hematocrit 38.4 % (37.0-47.0); Hemoglobin 12.8 g/dl (12.0-16.0); Imm Gran Abs Auto 0.02 X10*3/uL (0.00-0.03); Imm Gran Pct Auto 0.2 % (0.0-0.4); Lymphocytes Absolute Auto 3.1 X10*3/uL (1.2-4.9); Lymphocytes Percent Auto 33.8 % (20-40); Mean Corpuscular HGB Conc 33.3 g/dl (31.0-35.0); Mean Corpuscular Hemoglobin 24.8 pg (27.0-33.0); Mean Corpuscular Volume 74.4 fL (80.0-98.0); Mean Platelet Volume 8.4 fL (9.4-12.3); Monocytes Absolute Auto 0.8 X10*3/uL (0.1-1.2); Monocytes Percent Auto 8.5 % (2-11); Neutrophils Absolute Auto 5.2 x10*3/uL (2.0-8.3); Platelet Count 406 X10*3/uL (160-400); Red Blood Count 5.16 X10*6/uL (4.20-5.50); Red Cell Distribution Width 16.8 % (11.0-16.0); White Blood Count 9.2 X10*3/uL (4.8-10.8)
[2023-06-10 19:01] LABS: Alanine Aminotransferase 24 U/L (0-31); Albumin Level 4.1 g/dL (3.5-5.0); Alkaline Phosphatase 95 U/L (39-117); Anion Gap 14 (12-20); Aspartate Amino Transferase 18 U/L (5-31); Bilirubin Total 0.3 mg/dL (0.0-1.0); Blood Urea Nitrogen 10 mg/dL (9-16); Calcium 9.7 mg/dL (8.4-10.2); Carbon Dioxide 23 mmol/L (22-29); Chloride 107 mmol/L (96-108); Creatinine Clr Calc Pharmacy 114.3; Estimated Glomerular Filt Rate > 60; Glucose Random 98 mg/dL (60-115); Lipase 18 U/L (8-78); Potassium 3.7 mmol/L (3.3-5.1); Sodium 140 mmol/L (135-145); Total Protein 7.7 g/dL (6.5-8.0)
[2023-06-10 19:15] LABS: HCG Quantitative < 2 mIU/mL
[2023-06-10 19:17] LABS: Appearance Urine Clear; Color Urine Yellow; Glucose Urine UA Negative (Negative); Leukocyte Esterase Urine Negative (Negative); Nitrite Urine Negative (Negative); PH 5.5 (5.0-9.0); Specific Gravity - Urine >= 1.030 (1.005-1.025); UMIC TRIGGER UACC YES; Urine Blood Small (1+) (Negative); Urine Ketones Trace mg/dL (Negative); Urine Protein 100 (2+) mg/dL (Neg-Trace)
[2023-06-10 19:17] LABS: COVID-19 Test Negative (Negative); IDNOW Serial# 08D9AD1C
--- NOTE | 2023-06-10 19:17 | PC.NURSE ---
Pt laying in bed, IV fluids running. Reports pain decreased to 5/10 with Morphine. Sig other at bedside. Awaiting CT scan.
[2023-06-10 19:22] LABS: Bacteria Urine Trace (None Seen); Hyaline Casts Urine 0-2 /LPF (0-2); WBC Urine 0-5 /HPF (0-5)
[2023-06-10] MEDS: iohexoL 350 MG/ML 100 ML INFUS..BTL IV (19:30)
[2023-06-10] MEDS: Ketorolac Tromethamine 15 MG/ML VIAL IVPUSH (20:12)
[2023-06-10] MEDS: Famotidine/PF 20 MG/2 ML VIAL IVPUSH (20:12)
[2023-06-10 20:17] VITALS: BP 107/61; PULSE 55; RESP 16; O2SAT 99
--- NOTE | 2023-06-10 20:54 | PC.NURSE ---
PT laying in bed, reports toradol has decreased pain to 5/10. PT offers no complaints at this time. VSS. Sig other at the bedside. Awaiting u/s results, plan of care ongoing.
[2023-06-10] MEDS: Ondansetron ODT 4 MG TAB.RAPDIS TRANSLINGU (21:33)
== END 2023-06-10 21:45 | disposition home or self-care (01) ==
PROVIDERS: Nurse Practitioner Family; Physician Assistant; Emergency Provider Emergency Medicine; PCP Registered Nurse
DX: R10.9 Unspecified abdominal pain (principal); R11.2 Nausea with vomiting, unspecified; Z79.899 Other long term (current) drug therapy; Z11.52 Encounter for screening for COVID-19
CPT/HCPCS: 36415; 74177; 76705; 80053; 81001; 83690; 84702; 85025; 87635; 96361; 96374; 96375; 99284; 99285; J1885; J2270; J2405; Q9967

== ENCOUNTER 2023-07-23 19:00 | Emergency (ER) | payer OTHER, SELFPAY ==
[2023-07-23 19:37] VITALS: BP 128/80; PULSE 124; RESP 16; TEMP 37.6; O2SAT 99; BMI 29.8
--- NOTE | 2023-07-23 19:37 | ED.GENADULT ---
HPI - General Adult General Chief complaint: Nausea/Vomiting/Diarrhea Stated complaint: vomiting Source: patient Mode of arrival: ambulatory Limitations: no limitations History of Present Illness HPI narrative: Patient is a 23 year old assigned female at with a history of anemia presenting to the emergency department today with nausea, vomiting, and diarrhea after eating spanish toast and eggs. Patient states that this morning after she ate spanish toast and eggs, she had nausea, vomiting, and diarrhea. Patient denies any dizziness, lightheadedness, abdominal pain, fever, chills, blurry vision, double vision, loss of vision, chest pain, difficulty breathing, shortness of breath, back pain, night sweats, pain with urination, increased urinary frequency, increased urinary urgency, blood in her urine or stool, syncope or a near syncopal episode, recent trauma or falls, bowel incontinence, bladder incontinence, bowel retention, bladder retention, or any other complaints at this time. Onset (ago): hour(s) Relieving factors: none Exacerbating factors: none Associated symptoms: nausea/vomiting Treatments prior to arrival: none Related Data Previous Rx's Medication Instructions Recorded ferrous sulfate 325 mg (65 mg 325 mg PO DAILY #100 tabs 04/02/23 iron) tablet omeprazole 40 mg capsule,delayed 40 mg PO DAILY #14 caps 06/10/23 release ondansetron 4 mg disintegrating 4 mg PO Q6H PRN nausea and 06/10/23 tablet vomiting #20 tabs Allergies Allergy/AdvReac Type Severity Reaction Status Date / Time No Known Allergies Allergy Verified 07/23/23 19:37 [No Known Allergies*] Review of Systems Constitutional: Constitutional: Reports no additional constitutional complaints, Denies chills, Denies fever(s) and Denies night sweats Eyes: Eyes: Reports no additional eye complaints, Denies blurry vision, Denies change in vision, Denies diplopia, Denies eye discharge, Denies loss of vision and Denies eye pain ENT: Denies dizziness Cardiovascular: Cardiovascular: Reports no additional cardiovascular complaints, Denies chest pain, Denies lightheadedness, Denies Loss of Consciousness and Denies dyspnea Respiratory: Respiratory: Reports no additional respiratory complaints and Denies dyspnea Gastrointestinal: Gastrointestinal: Reports no additional gastrointestinal complaints, Denies abdominal pain, Denies melena, Denies hematochezia, Reports change in bowel habits, Reports change in stool character, Reports diarrhea, Reports nausea and Reports vomiting Genitourinary: Genitourinary: Denies hematuria, Denies urinary frequency, Denies dysuria, Denies urinary incontinence, Denies urinary hesitancy and Denies urinary urgency Musculoskeletal: Musculoskeletal: Reports no additional musculoskeletal complaints, Denies numbness and Denies tingling Neurologic: Denies dizziness, Denies loss of vision, Denies numbness and Denies tingling Psychiatric: Psychiatric: Reports no additional psychiatric complaints Endocrine: Endocrine: Reports no additional endocrine complaints Hematologic/Lymphatic: Hematologic/Lymphatic: Reports no additional hematologic/lymphatic complaints Allergic/Immunologic: Allergic/Immunologic: Reports no additional allergic/immunologic complaints [facility], [facility] Past Medical History Attestation statement: The following information was validated with the patient. Source: old records reviewed and nursing notes reviewed Medical History Proteinuria Bilateral nephrolithiasis No known health problems Social History Social History Alcohol intake: never Advance Directives: No Advance Directives Information Provided: No Physical Exam ED Vital Signs: Vital Signs - 24 hr 07/23/23 19:37 Temperature 99.6 F Pulse Rate 124 H Respiratory Rate 16 Blood Pressure 128/80 Pulse Oximetry 99 Oxygen Delivery Method Room Air BMI result Body Mass Index 29.8 Const General: cooperative, no acute distress, alert and awake Nutritional Appearance: well nourished Orientation/consciousness: patient oriented x3 Limitations: no limitations HENMT Head: Yes normal to inspection and Yes atraumatic Ears: hearing grossly normal bilaterally and external ears normal General nose exam: Normal external nose present, no nasal discharge noted and no epistaxis Face and sinus: Yes normal facial exam, No abrasion and No laceration Mouth: Normal oral and palatal mucosa present, no drooling and no muffled voice Eyes General: appearance normal, both eyes and all related structures Periorbital: periorbital findings normal Eyelids: Yes eyelids normal Conjunctivae: conjunctivae normal Pupils: Equal, round and reactive pupils present EOM: EOMs intact bilaterally Neck Neck: Yes normal visual inspection, Yes full ROM and Yes no lymphadenopathy Chest Chest palpation & inspection: normal inspection of the chest Resp Effort & Inspection: normal respiratory effort and able to speak in complete sentences GI Inspection: Yes normal to inspection Neuro General: patient oriented x3 and moves all extremities Cranial nerves: Yes Equal, round and reactive pupils present Cognition (Neuro): normal cognition Motor exam (neuro): 5/5 motor strength present throughout Sensory Exam: Normal double simultaneous stimulation for sensation Coordination: [id number] test normal Extrem General: Yes normal to inspection, Yes full ROM and Yes capillary refill normal Psych Appearance: grossly normal Mental Status: mental status grossly normal Affect: normal affect Attitude: cooperative Thought process: Normal thought process present Thought content: Normal thought content present Insight: Good insight present (Psych) Course Course Course Narrative: RME performed by Lisa Solano PA-C. Patient is a 23 year old assigned female at presenting to the emergency department with nausea, vomiting, and diarrhea. Patient states that she had breakfast of Venezuelan toast and eggs and ever since she has been vomiting and having diarrhea. Detailed physical exam and review of systems are deferred to the primary education professor. Labs and swabs ordered. Patient placed back in the waiting room pending room availability and results. Medications Administered Discontinued Medications Generic Name Dose Route Start Last Admin Trade Name Bernardo PRN Reason Stop Dose Admin Ondansetron HCl 4 mg 07/23/23 19:40 07/23/23 19:43 Ondansetron Odt 4 Mg Tab.Rapdis TRANSLINGU 07/23/23 19:41 4 mg ONCE ONE Administration Medical Decision Making Medical Decision Making [facility] Narrative: Patient is a 23 year old assigned female at with a history of anemia presenting to the emergency department today with nausea, vomiting, and diarrhea after ingesting breakfast. Patient's limited physical exam performed in triage was unremarkable. Patient's blood work was unremarkable. Patient left the department without completing treatment. Patient left the department before myself or any of the other emergency department clinicians could explain to or review with the patient; physical exam findings, test results, need or lack there of for additional testing, need or lack there of to perform a procedure, need or lack there of for hospital admission / transfer, need or lack there of for prescription medication, treatment options, or a treatment plan. Differential Diagnosis Differential Diagnoses: The differential diagnosis associated with the presentation includes Nausea Vomiting Gastroenteritis Enteritis COVID-19 Admission/Observation Consideration of admission/observation: Escalation of care including admission/observation considered Patient would have been admitted to the hospital had she completed her work up and it had any findings where hospital admission was appropriate, her clinical presentation warranted hospital admission, had myself or any other emergency dispatcher street department had the ability to discuss need or lack there of for hospital admission, and the patient hadn't left the department without completing treatment. Lab Data [facility] Lab Attestation statement: I reviewed the patient's lab results. My interpretation of these results are in the MDM Rationale portion of this note. 07/23/23 19:54 07/23/23 19:54 Labs: Lab Results 07/23/23 Range/Units 19:54 WBC 10.6 (4.8-10.8) X10*3/uL RBC 5.53 H (4.20-5.50) X10*6/uL Hgb 14.0 (12.0-16.0) g/dl Hct 42.4 (37.0-47.0) % MCV 76.7 L (80.0-98.0) fL MCH 25.3 L (27.0-33.0) pg MCHC 33.0 (31.0-35.0) g/dl RDW 15.4 (11.0-16.0) % Plt Count 406 H (160-400) X10*3/uL MPV 8.2 L (9.4-12.3) fL Immature Gran % (Auto) 0.3 (0.0-0.4) % Neut % (Auto) 86.6 H (45-73) % Lymph % (Auto) 9.5 L (20-40) % Slope % (Auto) 3.2 (2-11) % Eos % (Auto) 0.3 (0-4) % Baso % (Auto) 0.1 (0-2) % Lymph # (Auto) 1.0 L (1.2-4.9) X10*3/uL Slope # (Auto) 0.3 (0.1-1.2) X10*3/uL Eos # (Auto) 0.0 (0.0-0.4) X10*3/uL Baso # (Auto) 0.0 (0.0-0.2) X10*3/uL Abs Immat Gran (auto) 0.03 (0.00-0.03) X10*3/uL Absolute Neuts (auto) 9.2 H (2.0-8.3) x10*3/uL Absolute Nucleated RBC 0.000 (0.0-0.012) X10*3/uL Nucleated RBC % (auto) 0.0 (0.0-0.2) /100WBC Sodium 141 (135-145) mmol/L Potassium 3.8 (3.3-5.1) mmol/L Chloride 107 (96-108) mmol/L Carbon Dioxide 23 (22-29) mmol/L Anion Gap 15 (12-20) BUN 11 (9-16) mg/dL Creatinine 0.79 (0.5-1.4) mg/dL Estim Creat Clear Calc 112.5 Estimated GFR > 60 Random Glucose 100 (60-115) mg/dL Calcium 9.5 (8.4-10.2) mg/dL Magnesium 1.9 (1.6-2.6) mg/dL Total Bilirubin 0.5 (0.0-1.0) mg/dL AST 21 (5-31) U/L ALT 29 (0-31) U/L Alkaline Phosphatase 115 (39-117) U/L Total Protein 8.3 H (6.5-8.0) g/dL Albumin 4.6 (3.5-5.0) g/dL Beta HCG, Quant < 2 mIU/mL Influenza Type A (PCR) NEGATIVE (Negative) Influenza Type B (PCR) NEGATIVE (Negative) RSV RNA Qual (PCR) NEGATIVE (Negative) SARS-CoV-2 RNA (RT-PCR) NEGATIVE (Negative) Discharge Plan Discharge Clinical Impression: Nausea & vomiting Patient Disposition: Left W/O Completing Treatment Prescriptions: No Action ondansetron 4 mg tablet,disintegrating 4 mg PO Q6H PRN (Reason: nausea and vomiting) Qty: 20 0RF omeprazole 40 mg capsule,delayed release(DR/EC) 40 mg PO DAILY Qty: 14 0RF ferrous sulfate 325 mg (65 mg iron) tablet 325 mg PO DAILY Qty: 100 3RF Discharge Date/Time: 07/23/23 23:13
[2023-07-23] MEDS: Ondansetron ODT 4 MG TAB.RAPDIS TRANSLINGU (19:43)
[2023-07-23 19:59] LABS: MANUAL DIFF FLAG NO
[2023-07-23 20:05] LABS: Basophils Percent Auto 0.1 % (0-2); Eosinophils Percent Auto 0.3 % (0-4); Hematocrit 42.4 % (37.0-47.0); Imm Gran Abs Auto 0.03 X10*3/uL (0.00-0.03); Imm Gran Pct Auto 0.3 % (0.0-0.4); Lymphocytes Percent Auto 9.5 % (20-40); Mean Corpuscular Hemoglobin 25.3 pg (27.0-33.0); Mean Corpuscular Volume 76.7 fL (80.0-98.0); Mean Platelet Volume 8.2 fL (9.4-12.3); Monocytes Absolute Auto 0.3 X10*3/uL (0.1-1.2); Monocytes Percent Auto 3.2 % (2-11); Neutrophils Absolute Auto 9.2 x10*3/uL (2.0-8.3); Neutrophils Percent Auto 86.6 % (45-73); Platelet Count 406 X10*3/uL (160-400); Red Blood Count 5.53 X10*6/uL (4.20-5.50); Red Cell Distribution Width 15.4 % (11.0-16.0); White Blood Count 10.6 X10*3/uL (4.8-10.8)
[2023-07-23 20:20] LABS: Alanine Aminotransferase 29 U/L (0-31); Albumin Level 4.6 g/dL (3.5-5.0); Alkaline Phosphatase 115 U/L (39-117); Anion Gap 15 (12-20); Aspartate Amino Transferase 21 U/L (5-31); Bilirubin Total 0.5 mg/dL (0.0-1.0); Blood Urea Nitrogen 11 mg/dL (9-16); Calcium 9.5 mg/dL (8.4-10.2); Carbon Dioxide 23 mmol/L (22-29); Chloride 107 mmol/L (96-108); Creatinine Clr Calc Pharmacy 112.5; Estimated Glomerular Filt Rate > 60; Glucose Random 100 mg/dL (60-115); Magnesium 1.9 mg/dL (1.6-2.6); Potassium 3.8 mmol/L (3.3-5.1); Sodium 141 mmol/L (135-145); Total Protein 8.3 g/dL (6.5-8.0)
[2023-07-23 20:21] LABS: HCG Quantitative < 2 mIU/mL
[2023-07-23 20:37] LABS: Influenza A PCR NEGATIVE (Negative); Influenza B PCR NEGATIVE (Negative); Resp Syncy Virus RNA Qual PCR NEGATIVE (Negative); SARS COV2 PCR INHOUSE NEGATIVE (Negative)
== END 2023-07-23 23:13 | disposition left against medical advice (07) ==
LOC: HO.ED 23:14
PROVIDERS: Physician Assistant Medical; Emergency Provider Emergency Medicine; PCP Registered Nurse
DX: R11.2 Nausea with vomiting, unspecified (principal); Z11.52 Encounter for screening for COVID-19; Z20.828 Contact with and (suspected) exposure to other viral communicable diseases
CPT/HCPCS: 0241U; 80053; 83735; 84702; 85025; 99281; 99283; 99284

== ENCOUNTER 2023-09-03 15:24 | Outpatient (REF) | payer OTHER, SELFPAY ==
--- NOTE | ~2023-09-03 | US_ITS ---
EXAMINATION: US RETROPERITONEAL LIMITED (RENAL ONLY) CLINICAL INFORMATION: Calculus of kidney. COMPARISON: Ultrasound abdomen 06/10/2023. Ultrasound renal 03/07/2023. CT abdomen and pelvis 06/10/2023. TECHNIQUE: Real-time imaging of the kidneys. FINDINGS: RIGHT KIDNEY: 11.5 x 4.3 x 4.4 cm (SAG x AP x TRV). The kidney is normal in size, contour, and echogenicity. Renal cortical thickness is normal. No calculi or focal parenchymal lesions. No hydronephrosis. LEFT KIDNEY: 10.7 x 5.2 x 4.2 cm (SAG x AP x TRV). The kidney is normal in size, contour, and echogenicity. Renal cortical thickness is normal. No focal parenchymal lesions or hydronephrosis. 3 mm nonobstructing calculus in the lower pole. US/US renal BI IMPRESSION: 3 mm nonobstructing calculus in the lower left kidney. No hydronephrosis.
== END 2023-09-03 15:25 | disposition home or self-care (01) ==
LOC: HO.US 15:24
PROVIDERS: PCP Registered Nurse; Visit Provider Nurse Practitioner Family
DX: N20.0 Calculus of kidney (principal)
CPT/HCPCS: 76775

== ENCOUNTER 2024-10-03 14:25 | Outpatient (AMB) | payer OTHER, SELFPAY ==
--- OUTSIDE RECORDS SUMMARY | 2024-10-03 14:28 | XMS_ITS | Encounter Summary ---
Author Organization [employer] Address [address] [place] [address] Care Team Providers Care Grain Scooper Name Role Phone Bethany Almanzar [employer]ER Primary Care Provider [phone] Reason for Visit * Reason Onset Date Comments Med Refill 11/26/2023 Encounter Details Date Type Department Care Team (Late st Contact Info) Description 11/26/2023 Refill [facility] [address] [place] [address] Gabriel Espinoza, DMD [address] [place] [address] Symptomatic irreversible pulpitis Social History Tobacco Use Types Packs/Day Years Used Date Smoking Tobacco: Never Smokeless Tobacco: Never Alcohol Use Standard Drinks/Week Comments Never 0 (1 standard drink = 0.6 oz pur e alcohol) Depression Answer Date Recorded Patient Health Questionnaire-9 Score 0 10/24/2022 Housing Stability Answer Date Recorded What is your housing situation today? I have jaron ceballos 03/05/[address] you li ve. Do you have problems with any of the following? None of the above 03/05/2023 Food Insecurity Answer Date Recorded Within the past 12 months, y ou worried that your food would run out before you got money to buy more: Never True 03/05/2023 Within the past 12 months,th e food you bought just didn't last and you didn't have enough money to get more: Never True 09/2022 Transportation Answer Date Recorded In the past 12 months, has l ack of transportation kept you from medical appts, meetings, work or from getting things needed for daily living? No 03/05/2023 Utilities Answer Date Recorded In the past 12 months, has t he electric, gas, oil or water company threatened to shut off services in your home? No 03/05/2023 Depression Answer Date Recorded Patient Health Questionnaire-2 Score 0 10/24/2022 Comments Unknown Sex and Gender Information Value Date Recorded Sex Assigned at Female 02/27/2022 10:22 AM EDT Legal Sex Female 10:22 AM EDT Gender Identity Female 02/27/2022 10:22 AM EDT Sexual Orientation Lesbian 08/29/2023 1: 32 PM EDT documented as of this encounter Miscellaneous Notes * Telephone Encounter - Chris Landaverde DMD - 11/26/2023 10:40 AM EDT Please follow up with Dr. Espinoza documented in this encounter Plan of Treatment Not on file documented as of this encounter Visit Diagnoses Diagnosis Symptomatic irreversible pulpitis documented in this encounter Additional Health Concerns Assessment Noted Time PHQ-9 Depression Total Score: 0 10/25/19 9:28 AM EDT documented as of this encounter Care Teams Grain Scooper Relationship Specialty Start Date End Date Bethany Almanzar FNP [address] [place] [id number] PCP - General Family Medicine 10/27/22 documented as of this encounter
--- NOTE | 2024-10-03 14:53 | HO.NEPHOV_ITS ---
Vital Signs 10/03/24 14:54 Height 5 ft 4 in Weight 174 lb 6 oz BMI 29.9 BP 110/80 Blood Pressure Location Rt brachial Position Sitting Pulse 86 Pulse Source Pulse Oximeter Pulse Oximetry (%) 99 Oxygen Delivery Method Room Air Intake Visit Reasons: F/U Missed apt in [place] Required: No Accompanied by: Significant Other Allergies No Known Allergies [No Known Allergies*] Allergy (Verified 10/03/24 14:54) Medication List - Last Reconciled 10/03/24 by Tyler Hanson MD ferrous sulfate 325 mg PO DAILY omeprazole 40 mg PO DAILY ondansetron 4 mg PO Q6H PRN HPI Comments Details: Young woman with a history of nephrolithiasis has been referred for evaluation of proteinuria. She has had 5 stones thus far. She has 1 stone at the present time. Currently she is asymptomatic. Urinalysis in the past showed 1+ protein by dipstick. A year ago she had both protein and blood hours repeat UA was unremarkable. She has no other systemic complaints like joint pain rash edema. No gross hematuria. No family history of any current tissue disease. 10/03/24 24-year-old female presenting with tiredness, which she experiences daily despite reporting sufficient sleep overnight. She has not contacted her primary care provider about her symptoms. Her medical history includes kidney stones, and it appears her insufficient water intake may have contributed to this. She is not taking any current medications for this issue, such as iron supplements or omeprazole. Additionally, she hasn't consulted her urologist recently as she has no current symptoms of nephrolithiasis. [facility] Medical History Proteinuria Bilateral nephrolithiasis No known health problems Social History Alcohol intake: never Physical Exam Vital Signs: Last Vital Signs Pulse 86 10/03/24 14:54 BP 110/80 10/03/24 14:54 Pulse Ox 99 10/03/24 14:54 Oxygen Delivery Method Room Air 10/03/24 14:54 BMI result Body Mass Index 29.9 Const General: comfortable Nutritional Appearance: well nourished Orientation/consciousness: patient oriented x3 HEENT Head: No normal to inspection Mouth: moist mucous membranes Neck Neck: Yes supple and Yes no JVD Resp Auscultation: clear to auscultation bilaterally, no rales and rub present Cardio Jugular venous distension: no JVD Palpation: no palpable S3 and no palpable S4 Heart sounds: no rubs GI Palpation (GI): Soft to palpation and nontender Percussion: No Fluid wave present General: Yes no CVA tenderness Back/Spine/Pelvis Back: no CVA tenderness Skin General skin exam: no rashes or lesions noted Neuro General: patient oriented x3 Extrem General: Yes no pedal edema and No clubbing Results Reviewed Nephrology Results: Hgb 14.0 g/dl (12.0-16.0) 07/23/23 WBC 10.6 X10*3/uL (4.8-10.8) 07/23/23 Plt Count 406 X10*3/uL (160-400) H 07/23/23 Sodium 141 mmol/L (135-145) 07/23/23 Potassium 3.8 mmol/L (3.3-5.1) 07/23/23 Chloride 107 mmol/L (96-108) 07/23/23 Carbon Dioxide 23 mmol/L (22-29) 07/23/23 BUN 11 mg/dL (9-16) 07/23/23 Creatinine 0.79 mg/dL (0.5-1.4) 07/23/23 Calcium 9.5 mg/dL (8.4-10.2) 07/23/23 Urine Protein 100 (2+) mg/dL (Neg-Trace) H 06/10/23 Renal US 09/03/23 Assessment & Plan Assessment & Plan (1) Bilateral nephrolithiasis: Code(s): N20.0 - Calculus of kidney Category: Medical Plan: Young woman with multiple renal stones. 24 urine collection for nephrolithiasis was discussed with the patient. She needs to increase her fluid intake. She should increase her fluid intake to maintain urine output of 2 L. Continue with low-salt diet. Continue follow-up with Urology (2) Proteinuria: Code(s): R80.9 - Proteinuria, unspecified Category: Medical Plan: Urine dipstick showed proteinuria. Repeat Urine Pro: cr ordered (again!) (3) Anemia: Code(s): D64.9 - Anemia, unspecified Category: Medical Qualifiers: Anemia type: iron deficiency Plan: Significant iron deficiency has been documented. She has history of excessive menstrual bleeding at times. Stay on iron tablets. Recheck CBC prior to next visit Orders: Orders Complete Blood Count Auto Diff 1 Year N20.0 - Calculus of kidney, R31.29 - Other microscopic hematuria Creatinine Urine Today R80.9 - Proteinuria, unspecified Basic Metabolic Panel 1 Year N20.0 - Calculus of kidney, R31.29 - Other tristin roscopic hematuria UA and rflx microscopic 1 Year N20.0 - Calculus of kidney, R31.29 - Other microscopic hematuria Total Protein Urine Random Today R80.9 - Proteinuria, unspecified UA and rflx microscopic Today R80.9 - Proteinuria, unspecified Medications: Discontinued omeprazole Discontinued Reason: Patient no longer taking 40 mg PO DAILY 14 caps 0RF ondansetron Discontinued Reason: Patient no longer taking 4 mg PO Q6H PRN 20 tabs 0RF nausea and vomiting ferrous sulfate Discontinued Reason: Patient no longer taking 325 mg PO DAILY 100 tabs 3RF Coding Level of Care Code Est Pt Level 3 (10170) Diagnoses Bilateral nephrolithiasis N20.0 Proteinuria R80.9 Anemia D64.9 Anemia type: iron deficiency
[2024-10-03 14:54] VITALS: BP 110/80; PULSE 86; O2SAT 99; BMI 29.9
== END 2024-10-03 15:04 | disposition home or self-care (01) ==
LOC: HO.HKA 14:25
PROVIDERS: PCP Registered Nurse; Visit Provider Internal Medicine Hypertension Specialist
DX: N20.0 Calculus of kidney (principal); R80.9 Proteinuria, unspecified; D64.9 Anemia, unspecified
CPT/HCPCS: 99213

== ENCOUNTER → 2024-10-03 14:25 | Outpatient (BNVA) | payer OTHER, SELFPAY | PROVIDERS: PCP Registered Nurse; Visit Provider Internal Medicine Hypertension Specialist | DX: N20.0 Calculus of kidney (principal); R80.9 Proteinuria, unspecified; D64.9 Anemia, unspecified | CPT/HCPCS: 99212 ==